=== PATIENT | female | born 1995 | race Caucasian/White ===

== ENCOUNTER 2017-08-26 13:35 | Emergency (ER) | payer BC, OTHER ==
[~2017-08-26] VITALS: Ht 162.6 cm; Wt 67.0 kg
[~2017-08-26 13:35] MED LIST: ACET-1693 PO; DOCU-94 PO; PREN1CAP20 PO; PREN1TAB29 PO; SERT50TA PO
[2017-08-26 13:41] VITALS: Ht 162.6 cm; Wt 67.0 kg
[2017-08-26] MEDS ORDERED: BCPILLS PO (13:58)
[2017-08-26] MEDS ORDERED: SODIUM CHLORIDE 0.9% 1000ML 1,000 ML IV ONE (14:00)
[2017-08-26] MEDS ORDERED: ONDANSETRON INJ 2 MG/ML 2 ML VIAL IV PRN (14:00)
--- NOTE | 2017-08-26 14:06 | EMERGENCY ROOM VISIT NOTE ---
History First contact with patient: 13:44 Chief Complaint: ABDOMINAL PAIN Stated Complaint: ABDOMINAL PAIN,NAUSEA Nursing Triage Summary: pt here with left upper quad pain with dry heaves x one hour. denies diarrhea History of Present Illness The patient is a 21 year old female who presents to the Emergency Room with complaints of sudden onset of left upper quadrant abdominal pain that started approximately 1230 this afternoon. She also feels nauseated with dry heaving. No actual vomiting. She describes the pain is a constant dull ache that occasionally gets sharp and stabbing. She has not taken anything for pain. Her last bowel movement was yesterday and reportedly normal. The patient currently denies any fever or chills. She was diagnosed with influenza earlier this week, and started on Tamiflu. Those symptoms have resolved. She denies any urinary symptoms. No vaginal discharge. No chest pain or difficulty breathing. Review of Systems 10 system review performed and negative unless noted in HPI or below Past Medical/Surgical History Medical Problems: (1) Migraine Depression Family History Patient reports no known family medical history. Social History Smoking Status: Never Smoker Alcohol Use: none Drug Use: none Marital Status: single Occupation Status: student Current/Historical Medications Scheduled Control Pills ( Control Pills), 1 TAB PO HS Dicyclomine Hcl (Bentyl), 1 CAP PO TID Docusate Sodium (Colace), 1 CAP PO BID Ondasetron Odt (Zofran Odt), 4 MG SL Q6H Sertraline (Zoloft), 50 MG PO HS Physical Exam Vital Signs Date Time Temp Pulse Resp B/P (MAP) Pulse Ox O2 Delivery O2 Flow Rate FiO2 08/26/17 16:38 36.7 56 17 126/81 98 08/26/17 15:35 62 17 124/76 99 Room Air 08/26/17 13:41 36.7 65 16 120/71 95 Physical Exam VITALS: Vitals are noted on the nurse's note and reviewed by myself. Vital signs stable. GENERAL: 21-year-old female, moderately uncomfortable, SKIN: The skin was without rashes, erythema, edema, or bruising. HEAD: Normocephalic atraumatic. MOUTH: Mucous membranes dry NECK: Supple without nuchal rigidity. No lymphadenopathy. Cervical spine is nontender. No JVD. HEART: Regular rate and rhythm without murmurs gallops or rubs. LUNGS: Clear to auscultation bilaterally without wheezes, rales or rhonchi. No accessory muscle use. ABDOMEN: Positive bowel sounds x 4.Soft, mild tenderness to deep palpation in the left upper quadrant. No CVA tenderness. No guarding or rebound tenderness. MUSCULOSKELETAL: No muscle atrophy, erythema, or edema noted. Strength 5/5 throughout. NEURO: Patient was alert and oriented to person place and time. Normal sensation to touch. No focal neurological deficits. Medical Decision & Procedures ER Provider Diagnostic Interpretation: CT abdomen and pelvis without contrast IMPRESSION: 1. Findings most consistent with acute colitis involving the ascending colon and transverse colon. This is likely infectious in etiology. Evaluation is overall limited by noncontrast technique. 2. No hydronephrosis. No nephrolithiasis. Electronically signed by: Samuel Michaud M.D. 08/26/2017 4:01 PM Dictated Date/Time: 08/26/2017 3:56 PM The status of this report is Signed. Draft = Not yet reviewed or approved by Radiologist. Signed = Reviewed and approved by Radiologist. <AttendingPhy></AttendingPhy> <FamilyPhy>Alan Almonte III, M.D.</FamilyPhy> < PrimaryPhy>Alan Almonte III, M.D.</PrimaryPhy> <UnitNumber>[id number]</ UnitNumber> <VisitNumber>[id number]</VisitNumber> <PatientName>KRISTINA BORGES</ PatientName> <DateOfBirth>1995</DateOfBirth> <Location>[facility]</Location> < ServiceDate>08/26/17</ServiceDate> <MNE>ESINDI</MNE> <OrderingPhy>[facility] Results 08/26/17 14:35 Red Blood Count 4.87, Mean Corpuscular Volume 83.8, Mean Corpuscular Hemoglobin 26.5, Mean Corpuscular Hemoglobin Concent 31.6, Mean Platelet Volume 10.7, Neutrophils (%) (Auto) 53.1, Lymphocytes (%) (Auto) 38.9, Monocytes (%) (Auto) 6.6, Eosinophils (%) (Auto) 1.2, Basophils (%) (Auto) 0.0, Neutrophils # (Auto) 3.49, Lymphocytes # (Auto) 2.55, Monocytes # (Auto) 0.43, Eosinophils # (Auto) 0.08, Basophils # (Auto) 0.00 08/26/17 14:35 Test 08/26/17 14:30 08/26/17 14:35 Urine Color YELLOW Urine Appearance CLEAR (CLEAR) Urine pH 5.0 (4.5-7.5) Urine Specific Vinson 1.018 (1.000-1.030) Urine Protein NEG (NEG) Urine Glucose (UA) NEG (NEG) Urine Ketones NEG (NEG) Urine Occult Blood NEG (NEG) Urine Nitrite NEG (NEG) Urine Bilirubin NEG (NEG) Urine Urobilinogen NEG (NEG) Urine Leukocyte Esterase NEG (NEG) Urine Test NEG (NEG) White Blood Count 6.56 K/uL (4.8-10.8) Red Blood Count 4.87 M/uL (4.2-5.4) Hemoglobin 12.9 g/dL (12.0-16.0) Hematocrit 40.8 % (37-47) Mean Corpuscular Volume 83.8 fL (80-100) Mean Corpuscular Hemoglobin 26.5 pg (25-34) Mean Corpuscular Hemoglobin Concent 31.6 g/dl (32-36) Platelet Count 228 K/uL (130-400) Mean Platelet Volume 10.7 fL (7.4-10.4) Neutrophils (%) (Auto) 53.1 % Lymphocytes (%) (Auto) 38.9 % Monocytes (%) (Auto) 6.6 % Eosinophils (%) (Auto) 1.2 % Basophils (%) (Auto) 0.0 % Neutrophils # (Auto) 3.49 K/uL (1.4-6.5) Lymphocytes # (Auto) 2.55 K/uL (1.2-3.4) Monocytes # (Auto) 0.43 K/uL (0.11-0.59) Eosinophils # (Auto) 0.08 K/uL (0-0.5) Basophils # (Auto) 0.00 K/uL (0-0.2) RDW Standard Deviation 43.5 fL (36.4-46.3) RDW Coefficient of Variation 14.2 % (11.5-14.5) Immature Granulocyte % (Auto) 0.2 % Immature Granulocyte # (Auto) 0.01 K/uL (0.00-0.02) Anion Gap 7.0 mmol/L (3-11) Est Creatinine Clear Calc Drug Dose 94.7 ml/min Estimated GFR () 108.8 Estimated GFR (Non- 93.9 BUN/Creatinine Ratio 16.1 (10-20) Calcium Level 9.5 mg/dl (8.5-10.1) Total Bilirubin 0.2 mg/dl (0.2-1) Aspartate Amino Transf (AST/SGOT) 18 U/L (15-37) Alanine Aminotransferase (ALT/SGPT) 22 U/L (12-78) Alkaline Phosphatase 50 U/L (45-117) Total Protein 8.2 gm/dl (6.4-8.2) Albumin 3.9 gm/dl (3.4-5.0) Globulin 4.3 gm/dl (2.5-4.0) Albumin/Globulin Ratio 0.9 (0.9-2) Lipase 155 U/L (73-393) Monoscreen NEG (NEG) Medications Administered Medications (Trade) Dose Ordered Sig/Anibal Route Start Time Stop Time Status Last Admin Dose Admin Morphine Sulfate (MoRPHine SULFATE INJ) 4 mg Q1H PRN IV 08/26/17 14:00 08/26/17 17:20 DC 08/26/17 16:38 4 MG Ondansetron HCl (Zofran Inj) 4 mg Q2H PRN IV 08/26/17 14:00 08/26/17 17:20 DC 08/26/17 14:36 4 MG Sodium Chloride 1,000 ml @ 999 mls/hr Q1H1M ONCE IV 08/26/17 14:00 08/26/17 15:00 DC 08/26/17 14:37 999 MLS/HR ED Course Patient was seen and examined Vital signs including blood pressure were reviewed medications list was verified with patient Labs were obtained, and a saline lock was established The patient was medicated with morphine and Zofran. She was hydrated with 1 L of normal saline. Upon reevaluation, the patient said that her pain was better. It was now a 5/ 10. We discussed the results of her workup. She voiced understanding, was comfortable being discharged home. She was given 1 additional dose of morphine I reviewed discharge instructions the patient. They voiced understanding and had no further questions. Medical Decision DIFFERENTIAL DIAGNOSIS: Gastroenteritis, Hepatitis, cholecystitis, cholangitis, biliary colic, pancreatitis, appendicitis, inguinal hernia, nephrolithiasis, inflammatory bowel disease, mesenteric adenitis, peptic ulcer disease, GERD, gastritis, pancreatitis,, bowel obstruction, splenic infarct, diverticulitis, mesenteric ischemia, metabolic, peritonitis, among others. This patient is a 21-year-old female that presents to the emergency department with complaints of sudden onset of left upper abdominal pain and nausea. On exam, she was tender in the left upper quadrant. A CT of the abdomen and pelvis were performed to evaluate patient for possible pyelonephritis versus ureteral stone versus pancreatitis or other etiology. This was consistent with a nonspecific colitis. The etiology is unclear. There is no leukocytosis or fever. I do not see an indication for antibiotics or steroids. This is likely self-limited. The patient will be treated with antiemetics and Bentyl. She will follow-up with her primary care physician closely on Monday. She agrees to return over the weekend with any worsening symptoms This chart was completed in part utilizing [employer] Voice Recognition software. Attempts were made to minimize the grammatical errors, random word insertions, pronoun errors and incomplete sentences. Any formal questions or concerns about the content, text or information contained within the body of this dictation should be directly addressed to the provider for clarification. Impression Primary Impression: Colitis Departure Information Dispostion Home / Self-Care Condition GOOD Prescriptions Ondasetron Odt (ZOFRAN ODT) 4 Mg Tab 4 MG SL Q6H for Nausea, #20 TAB Prov: Fadia Zavaleta PA-C 08/26/17 Dicyclomine Hcl (BENTYL) 10 Mg Cap 1 CAP PO TID for Pain, #15 CAP Prov: Fadia Zavaleta PA-C 08/26/17 Referrals Alan Almonte III, M.D. (PCP) Patient Instructions My [facility] Additional Instructions You have been evaluated in the emergency department for abdominal pain. This is likely due to a mild inflammation of the colon. This will likely resolve on its own. Please follow a clear liquid diet tonight-broth, Gatorade, water, dennis andres, etc. If you are feeling better tomorrow, please advance to a bland diet such as crackers and toast Zofran 1 tab under the tongue every 6 hours as needed for nausea Bentyl 1 tab every 8 hours as needed for abdominal cramping Please follow-up with your primary care physician within the next 48 hours for a recheck Do not hesitate to return to the emergency department with any new, worsening or concerning symptoms; especially, worsening pain, persistent vomiting or fever of 103F or greater It was a pleasure participating in your care today Work Instructions Return To Work: 1 day
[2017-08-26] MEDS: MoRPHine SULFATE 4 MG/ML 1 ML CARP\\VIAL IV PRN ×2 (14:36→16:38)
[2017-08-26 14:49] LABS: EOS % 1.2 %; EOS ABS # 0.08 K/uL (0-0.5); HEMATOCRIT 40.8 % (37-47); HEMOGLOBIN 12.9 g/dL (12.0-16.0); IG# 0.01 K/uL (0.00-0.02); LYMPH % 38.9 %; LYMPH ABS # 2.55 K/uL (1.2-3.4); MEAN CELL VOLUME 83.8 fL (80-100); MEAN CORPUSCULAR HEMOGLOBIN 26.5 pg (25-34); MEAN CORPUSCULAR HGB CONC 31.6 g/dl (32-36); MEAN PLATELET VOLUME 10.7 fL (7.4-10.4); MONO % 6.6 %; MONO ABS # 0.43 K/uL (0.11-0.59); NEUT % 53.1 %; NEUT ABS # 3.49 K/uL (1.4-6.5); PLATELET COUNT 228 K/uL (130-400); RED CELL DISTRIBUTION WIDTH CV 14.2 % (11.5-14.5); RED CELL DISTRIBUTION WIDTH SD 43.5 fL (36.4-46.3); WHITE BLOOD COUNT 6.56 K/uL (4.8-10.8)
[2017-08-26 15:06] LABS: ALBUMIN 3.9 gm/dl (3.4-5.0); CALCIUM 9.5 mg/dl (8.5-10.1); CREATININE 0.87 mg/dl (0.60-1.20); POTASSIUM 3.9 mmol/L (3.5-5.1)
[2017-08-26 15:09] LABS: TOTAL PROTEIN 8.2 gm/dl (6.4-8.2)
--- NOTE | 2017-08-26 16:02 | DIAGNOSTIC IMAGING REPORT ---
ABD/PELVIS NO IV OR ORAL CONT CLINICAL HISTORY: 21 years-old Female presenting with L flank pain mild hydro on bedside US. TECHNIQUE: Multidetector CT of the abdomen and pelvis was performed without the use of intravenous contrast. IV contrast: 04/14/2012 A dose lowering technique was used consistent with the principles of ALARA (as low as reasonably achievable). COMPARISON: None. CT DOSE (mGy.cm): The estimated cumulative dose is 305.33 mGy.cm. FINDINGS: Fisher Gill Net topogram: Unremarkable. Lung bases: Minimal basilar opacities, likely atelectasis. Normal heart size. No pericardial or pleural effusion. Liver: Normal morphology. Normal density. Biliary: No gross biliary ductal dilatation allowing for noncontrast technique. Normal gallbladder. Pancreas: Normal noncontrast appearance. Spleen: Normal noncontrast appearance. Adrenal glands: Normal noncontrast appearance. Kidneys and ureters: Normal noncontrast appearance. No nephrolithiasis. No hydronephrosis. Normal ureters. Bladder: Normal noncontrast appearance. Pelvic organs: Normal noncontrast appearance. Bowel: Moderate stool burden. Focal wall thickening of the ascending colon to the level of the hepatic flexure. Minimal wall thickening of the transverse colon. Extensive infiltration of the transverse mesial colon. The appendix is normal. No bowel obstruction. Peritoneal cavity: No free fluid or intraperitoneal gas. Lymph nodes: No gross lymphadenopathy allowing for noncontrast technique. Vasculature: Normal noncontrast appearance. Abdominal wall: Normal. Musculoskeletal: Normal. IMPRESSION: 1. Findings most consistent with acute colitis involving the ascending colon and transverse colon. This is likely infectious in etiology. Evaluation is overall limited by noncontrast technique. 2. No hydronephrosis. No nephrolithiasis. Electronically signed by: Samuel Michaud M.D. 08/26/2017 4:01 PM Dictated Date/Time: 08/26/2017 3:56 PM
[2017-08-26] MEDS ORDERED: DICY10CA55 PO (16:19)
[2017-08-26] MEDS ORDERED: ONDA4TAB10 SL (16:19)
[2017-08-26 16:38] VITALS: BP 126/81; PULSE 56; TEMP 36.7; O2SAT 98
== END 2017-08-26 16:39 | disposition home or self-care (01) ==
LOC: C.EDB 13:35
DX: K52.9 Noninfective gastroenteritis and colitis, unspecified (principal); R10.12 Left upper quadrant pain; R11.0 Nausea; Z79.899 Other long term (current) drug therapy; Z79.3 Long term (current) use of hormonal contraceptives; F32.9 Major depressive disorder, single episode, unspecified

== ENCOUNTER 2019-12-18 16:52 | Observation (INO) ==
[2019-12-18] MEDS ORDERED: KETOROLAC TROMETHAMINE 15 MG/ML VIAL IV STA (17:08)
[2019-12-18] MEDS ORDERED: ONDANSETRON INJ 2 MG/ML 2 ML VIAL IV STA (17:08)
--- NOTE | 2019-12-18 17:14 | Emergency Department Note ---
Impression & Plan RUQ abdominal pain, Vomiting, Failure of outpatient treatment ED Provider Note NAME: KRISTINA BORGES AGE: 24 SEX: F : 1995 ARRIVES VIA: Walk-In INFORMANT: [Patient] ED PROVIDER(S): [Kirill Huang MD] CHIEF COMPLAINT: Abdominal pain HISTORY OF PRESENT ILLNESS: Patient is a 24-year-old female who states that at 1230 yesterday after eating her lunch, she developed severe right upper quadrant abdominal pain radiating to her right shoulder. The pain is an 8 on a scale of 1-10. She has had nausea and vomiting. The pain is worse to palpate the right upper quadrant and when she takes a very deep breath. She is not short of breath. She had a low-grade temperature today of 99 degrees. The patient came to the ED yesterday for her pain. Her laboratory work-up and gallbladder ultrasound were essentially unremarkable. The cause for the pain was not clear and she was referred for potential further outpatient care. The patient states that the pain has continued. She is still vomiting, she cannot eat or drink. The medications prescribed yesterday are not helping. She is convinced this is her gallbladder. There have been no urinary complaints. She has never had pain like this before. She denies stuffy nose or cough. REVIEW OF SYSTEMS: See HPI for pertinent positives and negatives. A total of ten systems were reviewed and were otherwise negative. PMHx/PSHx: See Below SOCIAL HISTORY: See Below. PHYSICAL EXAM: GENERAL: Patient is in no acute distress. HEENT: No acute trauma, normocephalic atraumatic, mucous membranes moist, no n kelly congestion, no scleral icterus. NECK: No stridor, no adenopathy, no meningismus, trachea is midline. LUNGS: Clear to auscultation bilaterally, no wheeze, no rhonchi, breath sounds equal. HEART: Without murmurs gallops or rubs, regular rate and rhythm. Chest: Nontender chest wall. ABDOMEN: Soft, significantly tender in the right upper quadrant, bowel sounds positive, no hernias, no peritonitis. EXTREMITIES: No cyanosis or edema, full range of motion of all the joints without pain or difficulty, no signs for acute trauma. NEUROLOGIC: Oriented x 3, no acute motor or sensory deficits, no focal weakness. SKIN: No rash, no jaundice, no diaphoresis. DIFFERENTIAL DIAGNOSIS: Appendicitis, ovarian cyst, ovarian torsion, ectopic , TOA, PID, infections, diverticulitis, UTI, obstruction, mesenteric ischemia, aortic pathology, inflammatory bowel disease, renal colic, PUD, pancreatitis, biliary pathology, hernia, volvulus, constipation, as well as other pathologies. EMERGENCY DEPARTMENT COURSE/PROCEDURES: MEDICAL DECISION MAKING: There is no leukocytosis or concerning anemia. There is a normal platelet count. No significant electrolyte abnormality or kidney failure. No concerning liver enzyme elevation. No evidence for pancreatitis. testing was negative. Abdominal and pelvis CT shows some trace fluid in the pelvis thought physiologic. There was no evidence for appendicitis. No acute surgical process by CT scan. On exam, the patient was quite tender in the right upper quadrant. Patient received IV saline for hydration. She was given IV Zofran, IV morphine, IV Toradol. She required IV Phenergan for additional nausea control. At this point, the cause for her pain is unclear. Biliary dysfunction is certainly a possibility though. The patient has failed outpatient treatment. She is not able to take in anything by mouth. She has persistent vomiting despite medications prescribed yesterday. I do think a hospital stay is warranted. I did speak with general surgery-patient is being hospitalized for a potential cholecystectomy. 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 Beliefs That Will Affect Care: None marital status: Current Living Situation: Spouse current occupational status: employed Feels Safe at Home: Yes Allergies Allergies Allergy/AdvReac Type Severity Reaction Status Date / Time sumatriptan [From Imitrex] Allergy Severe felt like Unverified 12/18/19 19:58 throat was swelling Home Meds Home Medications Medication Instructions Recorded Confirmed escitalopram oxalate [Lexapro] 10 mg PO DAILY 12/17/19 12/18/19 Previous Rx's Medication Instructions Recorded oxycodone 5 mg PO Q4H PRN #15 tab 12/17/19 Results & Data (ED) Vital Signs Vital Signs - 24 hr 12/18/19 16:55 12/18/19 17:26 12/18/19 17:30 Temperature 36.4 C L Temperature Source Oral Pulse Rate 74 66 Pulse Rate [Left Finger] 62 Pulse Rate from SpO2 Sensor 67 Pulse Rhythm Regular Pulse Strength Normal Respiratory Rate 18 20 15 Respiratory Effort / Characteristics Non-Labored Respiratory Depth Normal Respiratory Pattern Regular Blood Pressure 113/75 115/66 Blood Pressure [Left Arm] 121/63 Blood Pressure Mean 87 85 Blood Pressure Mean [Left Arm] 82 Blood Pressure Position Sitting Pulse Oximetry 97 98 97 Oxygen Delivery Method Room Air Sepsis Recent Fever Within 48 Hours Yes Sepsis New/Unexplained Change in Mental Status No Sepsis Action Taken by Nursing No Action Required 12/18/19 17:39 12/18/19 17:40 12/18/19 17:50 Temperature Temperature Source Pulse Rate 60 60 58 L Pulse Rate [Left Finger] Pulse Rate from SpO2 Sensor 59 L 61 61 Pulse Rhythm Pulse Strength Respiratory Rate 18 12 21 Respiratory Effort / Characteristics Respiratory Depth Respiratory Pattern Blood Pressure Blood Pressure [Left Arm] Blood Pressure Mean Blood Pressure Mean [Left Arm] Blood Pressure Position Pulse Oximetry 97 97 98 Oxygen Delivery Method Sepsis Recent Fever Within 48 Hours Sepsis New/Unexplained Change in Mental Status Sepsis Action Taken by Nursing 12/18/19 18:00 12/18/19 18:01 12/18/19 18:10 Temperature Temperature Source Pulse Rate 56 L 58 L 61 Pulse Rate [Left Finger] Pulse Rate from SpO2 Sensor 57 L 56 L 62 Pulse Rhythm Pulse Strength Respiratory Rate 12 13 Respiratory Effort / Characteristics Respiratory Depth Respiratory Pattern Blood Pressure 98/62 L Blood Pressure [Left Arm] Blood Pressure Mean 82 Blood Pressure Mean [Left Arm] Blood Pressure Position Pulse Oximetry 99 99 99 Oxygen Delivery Method Sepsis Recent Fever Within 48 Hours Sepsis New/Unexplained Change in Mental Status Sepsis Action Taken by Nursing 12/18/19 18:20 12/18/19 18:34 12/18/19 18:40 Temperature Temperature Source Pulse Rate 53 L 59 L 54 L Pulse Rate [Left Finger] Pulse Rate from SpO2 Sensor 52 L 56 L Pulse Rhythm Pulse Strength Respiratory Rate 14 13 16 Respiratory Effort / Characteristics Respiratory Depth Respiratory Pattern Blood Pressure Blood Pressure [Left Arm] Blood Pressure Mean Blood Pressure Mean [Left Arm] Blood Pressure Position Pulse Oximetry 99 99 Oxygen Delivery Method Sepsis Recent Fever Within 48 Hours Sepsis New/Unexplained Change in Mental Status Sepsis Action Taken by Nursing 12/18/19 18:50 12/18/19 19:00 12/18/19 19:10 Temperature Temperature Source Pulse Rate 57 L 58 L 56 L Pulse Rate [Left Finger] 56 L Pulse Rate from SpO2 Sensor 58 L 58 L 54 L Pulse Rhythm Pulse Strength Respiratory Rate 15 15 14 Respiratory Effort / Characteristics Respiratory Depth Respiratory Pattern Blood Pressure 112/74 Blood Pressure [Left Arm] 112/74 Blood Pressure Mean 84 Blood Pressure Mean [Left Arm] 86 Blood Pressure Position Pulse Oximetry 98 98 92 Oxygen Delivery Method Room Air Sepsis Recent Fever Within 48 Hours Sepsis New/Unexplained Change in Mental Status Sepsis Action Taken by Nursing 12/18/19 19:20 12/18/19 19:30 Temperature Temperature Source Pulse Rate 56 L 61 Pulse Rate [Left Finger] Pulse Rate from SpO2 Sensor 57 L 61 Pulse Rhythm Pulse Strength Respiratory Rate 13 14 Respiratory Effort / Characteristics Respiratory Depth Respiratory Pattern Blood Pressure 125/76 Blood Pressure [Left Arm] Blood Pressure Mean 92 Blood Pressure Mean [Left Arm] Blood Pressure Position Pulse Oximetry 100 99 Oxygen Delivery Method Sepsis Recent Fever Within 48 Hours Sepsis New/Unexplained Change in Mental Status Sepsis Action Taken by Alf Medications Current Medication List: was personally reviewed by me Laboratory Data Attestation: I reviewed the patient's lab results. Result diagrams: 12/18/19 17:30 12/18/19 17:30 Lab Results 12/18/19 12/18/19 12/18/19 Range/Units 17:30 17:30 17:30 WBC 5.91 (4.8-10.8) K/uL RBC 4.52 (4.2-5.4) M/uL Hgb 12.8 (12.0-16.0) g/dL Hct 40.0 (37-47) % MCV 88.5 (80-100) fL MCH 28.3 (25-34) pg MCHC 32.0 (32-36) g/dL RDW Std Deviation 43.6 (36.4-46.3) fL RDW Coeff of Roque 13.5 (11.5-14.5) % Plt Count 213 (130-400) K/uL MPV 11.5 H (7.4-10.4) fL Immature Gran % (Auto) 0.0 % Neut % (Auto) 45.1 % Lymph % (Auto) 44.2 % [place] % (Auto) 8.5 % Eos % (Auto) 2.0 % Baso % (Auto) 0.2 % Neut # (Auto) 2.67 (1.4-6.5) K/uL Lymph # (Auto) 2.61 (1.2-3.4) K/uL [place] # (Auto) 0.50 (0.11-0.59) K/uL Eos # (Auto) 0.12 (0-0.5) K/uL Baso # (Auto) 0.01 (0-0.2) K/uL Immature Gran # (Auto) 0.00 (0.00-0.02) K/uL Sodium 140 (136-145) mmol/L Potassium 3.7 (3.5-5.1) mmol/L Chloride 108 H (98-107) mmol/L Carbon Dioxide 28 (21-32) mmol/L Anion Gap 4.0 (3-11) BUN 11 (7-18) mg/dl Creatinine 0.89 D (0.6-1.2) mg/dl Est Cr Clr Drug Dosing 94.0 ml/min Est GFR ( Amer) 103.7 Est GFR (Non-Af Amer) 89.4 BUN/Creatinine Ratio 11.9 (10-20) Glucose 82 (70-99) mg/dl Calcium 9.0 (8.5-10.1) mg/dl Total Bilirubin 0.2 (0.2-1) mg/dl AST 14 L (15-37) U/L ALT 19 (12-78) U/L Alkaline Phosphatase 40 L (45-117) U/L Total Protein 7.8 (6.4-8.2) gm/dl Albumin 4.3 (3.4-5.0) gm/dl Globulin 3.5 (2.5-4.0) gm/dl Albumin/Globulin Ratio 1.2 (0.9-2) Lipase 130 (73-393) U/L HCG, Qual Negative (Negative) Administered Medications Hydromorphone HCl (Dilaudid) 0.5 mg IV Q3HWA PRN PRN Reason: Pain 1-5 Stop: 01/01/20 19:29 Last Admin: 12/18/19 21:28 Dose: 0.5 mg Documented by: [id number] Sodium Chloride (Nss 1000ml) 1,000 mls @ 80 mls/hr IV .[id number] RAFFI Stop: 01/17/20 19:29 Last Admin: 12/18/19 21:18 Dose: 80 mls/hr Documented by: [id number] Discontinued Medications Sodium Chloride (Nss) 500 mls @ 999 mls/hr IV .Q31M RAFFI Stop: 12/18/19 17:45 Last Infusion: 12/18/19 18:07 Dose: 0 mls/hr Documented by: [id number] Admin: 12/18/19 17:33 Dose: 999 mls/hr Documented by: [id number] Promethazine HCl 12.5 mg/ (Sodium Chloride) 50.5 mls @ 202 mls/hr IV NOW STA Stop: 12/18/19 19:04 Last Admin: 12/18/19 18:56 Dose: Not Given Documented by: [id number] Ioversol (Optiray 320 100ml) 89 ml IV ONCE PRN PRN Reason: Interaction Checking Stop: 12/22/19 18:24 Last Admin: 12/18/19 18:25 Dose: 89 ml Documented by: [id number] Ketorolac Tromethamine (Toradol) 15 mg IV NOW STA Stop: 12/18/19 17:09 Last Admin: 12/18/19 17:28 Dose: 15 mg Documented by: [id number] Morphine Sulfate (Morphine Sulfate) 2 mg IV Q15M PRN PRN Reason: Pain Stop: 01/01/20 17:07 Last Admin: 12/18/19 18:56 Dose: 2 mg Documented by: [id number] Admin: 12/18/19 17:28 Dose: 2 mg Documented by: [id number] Ondansetron HCl (Zofran) 4 mg IV NOW STA Stop: 12/18/19 17:09 Last Admin: 12/18/19 17:28 Dose: 4 mg Documented by: [id number] Promethazine HCl (Phenergan) Confirm Administered Dose 12.5 mg IV .STK-MED ONE Stop: 12/18/19 18:54 Last Admin: 12/18/19 18:56 Dose: 12.5 mg Documented by: [id number] Imaging Data Radiologist's Impression: CT OF THE ABDOMEN AND PELVIS WITH CONTRAST CLINICAL HISTORY: ruq pain, neg ultrasound, vomiting COMPARISON STUDY: CT of the abdomen and pelvis August 26, 2017. Right upper quadrant ultrasound December 17, 2019. TECHNIQUE: Following IV administration of 89 mL of Optiray-320, axial images of the abdomen and pelvis were obtained from the lung bases to the proximal femurs. Images were reviewed in the axial, sagittal, and coronal planes. IV contrast was administered without complication. Automated exposure control was utilized for the study. A dose lowering technique was utilized adhering to the principles of ALARA. CT DOSE: 371.38 mGy.cm FINDINGS: Lung bases are unremarkable. No pneumatosis, free air or portal venous gas is present. The liver, spleen, adrenal glands, kidneys and pancreas are unremarkable. The nephrograms are symmetric. Punctate hyperdensity within the right collecting system could reflect excreted contrast or a tiny calculus. There are no ureteral calculi. There is no peripancreatic or pericholecystic infiltration. No biliary or pancreatic ductal dilatation is noted. The appendix is partially obscured but visualized portions are normal. A small amount of fluid within the pelvis is noted. Major vasculature is patent. Caliber and wall thickness of small and large bowel are normal. There are no suspicious osseous lesions. There is no lymphadenopathy. No fracture or suspicious lesion is identified within visualized skeletal structures. IMPRESSION: 1. No acute process within the abdomen or pelvis. 2. No bowel obstruction. Partially obscured appendix but visualized portions normal. 3. Small fluid within the pelvis which is likely physiologic. Blood Pressure Blood Pressure Findings: Normal blood pressure Discharge Plan Visit Data *Final* Discharge Date/Time: 12/18/19 20:24 Chief Complaint: Vomiting Stated Complaint: SHOULDER PAIN, VOMITTING ED Provider: Kirill Huang Discharge Problem: RUQ abdominal pain, Vomiting, Failure of outpatient treatment Patient Disposition: Admitted As Inpatient Condition: Good Discharge Instructions Interventions: ED Discharge Assessment Last Done: 12/18/19 20:24 Discharge Problem: Vomiting Qualifiers: Vomiting type: unspecified Vomiting Intractability: intractable Nausea presence: with nausea Qualified Code(s): R11.2 - Nausea with vomiting, unspecified
[2019-12-18] MEDS ORDERED: SODIUM CHLORIDE 0.9% 500 ML IV SCH (17:15)
[2019-12-18] MEDS: MoRPHine SULFATE 4 MG/ML 1 ML CARP\\VIAL IV PRN ×2 (17:28→18:56)
[2019-12-18 17:45] LABS: Basophils # (auto) 0.01 K/uL (0-0.2); Basophils % (auto) 0.2 %; Eosinophils # (auto) 0.12 K/uL (0-0.5); Hemoglobin 12.8 g/dL (12.0-16.0); Lymphocytes # (auto) 2.61 K/uL (1.2-3.4); Lymphocytes % (auto) 44.2 %; Mean Corpuscular Hemoglobin 28.3 pg (25-34); Mean Corpuscular Volume 88.5 fL (80-100); Mean Platelet Volume 11.5 fL (7.4-10.4); Monocytes % (auto) 8.5 %; Neutrophils # (auto) 2.67 K/uL (1.4-6.5); Neutrophils % (auto) 45.1 %; Platelet Count 213 K/uL (130-400); RDW Coefficient of Variation 13.5 % (11.5-14.5); RDW Standard Deviation 43.6 fL (36.4-46.3); Red Blood Count 4.52 M/uL (4.2-5.4); White Blood Count 5.91 K/uL (4.8-10.8)
[2019-12-18 17:58] LABS: Pregnancy Test, Serum Negative (Negative)
[2019-12-18 18:10] LABS: Albumin Globulin Ratio 1.2 (0.9-2); Albumin Level 4.3 gm/dl (3.4-5.0); BUN Creatinine Ratio 11.9 (10-20); Bilirubin,Total 0.2 mg/dl (0.2-1); Est GFR (African American) 103.7; Est GFR (Non-African American) 89.4; Globulin 3.5 gm/dl (2.5-4.0); Potassium 3.7 mmol/L (3.5-5.1); Total Protein 7.8 gm/dl (6.4-8.2)
[2019-12-18] MEDS ORDERED: IOVERSOL 100ml IV PRN (18:25)
--- NOTE | 2019-12-18 18:46 | CT Scan Report ---
CT OF THE ABDOMEN AND PELVIS WITH CONTRAST CLINICAL HISTORY: ruq pain, neg ultrasound, vomiting COMPARISON STUDY: CT of the abdomen and pelvis August 26, 2017. Right upper quadrant ultrasound November 202019. TECHNIQUE: Following IV administration of 89 mL of Optiray-320, axial images of the abdomen and pelvi s were obtained from the lung bases to the proximal femurs. Images were reviewed in the axial, sagitt al, and coronal planes. IV contrast was administered without complication. Automated exposure contro l was utilized for the study. A dose lowering technique was utilized adhering to the principles of A KIRAN. CT DOSE: 371.38 mGy.cm FINDINGS: Lung bases are unremarkable. No pneumatosis, free air or portal venous gas is present. The liver, spleen, adrenal glands, kidneys and pancreas are unremarkable. The nephrograms are symmetric. Punctate hyperdensity within the right collecting system could reflect excreted contrast or a tiny ca lculus. There are no ureteral calculi. There is no peripancreatic or pericholecystic infiltration. No biliary or pancreatic ductal dilatation is noted. The appendix is partially obscured but visualized portions are normal. A small amount of fluid within the pelvis is noted. Major vasculature is patent. Caliber and wall thickness of small and large bowel are normal. There are no suspicious osseous lesi ons. There is no lymphadenopathy. No fracture or suspicious lesion is identified within visualized sk eletal structures. IMPRESSION: 1. No acute process within the abdomen or pelvis. 2. No bowel obstruction. Partially obscured appendix but visualized portions normal. 3. Small fluid within the pelvis which is likely physiologic. ACT 112: Negative or not required by law. Electronically signed by: Pascual Mercado M.D. 12/18/2019 6:45 PM
[2019-12-18] MEDS ORDERED: PROMETHAZINE HCL 12.5 MG in SODIUM CHLORIDE 0.9% 50 ML IV STA (18:50)
[2019-12-18] MEDS ORDERED: PROMETHAZINE 12.5 MG/50.5 ML NSS IV ONE (18:53)
[2019-12-18] MEDS ORDERED: PROMETHAZINE HCL 12.5 MG in SODIUM CHLORIDE 0.9% 50 ML IV PRN (19:30)
[2019-12-18] MEDS ORDERED: ONDANSETRON INJ 2 MG/ML 2 ML VIAL IV PRN (19:30)
[2019-12-18] MEDS ORDERED: PROMETHAZINE HCL 25 MG in SODIUM CHLORIDE 0.9% 50 ML IV PRN (19:30)
--- NOTE | 2019-12-18 19:30 | History & Physical Report ---
Date of Service December 18, 2019 Assessment & Plan (1) Biliary colic: I do believe the patient is having biliary colic Do not feel a GI evaluation will find any additional information I do feel we should proceed with laparoscopic cholecystectomy And I have discussed this with patient and her They do agree and wish to proceed We will admit her and proceed tomorrow History of Present Illness Primary Care Provider: Alan Almonte MD 24-year-old female who is now been in the emergency room 2 days in a row with right upper quadrant pain Nausea and vomiting-the pain apparently radiates into her shoulder and back area She is convinced that is her gallbladder Her studies have been essentially normal Allergies Allergy/AdvReac Type Severity Reaction Status Date / Time sumatriptan [From Imitrex] Allergy Severe felt like Unverified 12/17/19 14:39 throat was swelling Home Medications Home Medications Medication Instructions Recorded Confirmed Type escitalopram oxalate [Lexapro] 10 mg PO DAILY 12/17/19 12/17/19 History ondansetron 4 mg PO Q6H PRN #10 tab 12/17/19 Rx oxycodone 5 mg PO Q4H PRN #15 tab 12/17/19 Rx Past Med/Surg History Medical History Migraine (Chronic) Surgical History No significant past surgical history Social History Smoking Status: Never smoker marital status: Current Living Situation: Spouse current occupational status: employed Feels Safe at Home: Yes Review of Systems Review of Systems: All systems reviewed & are unremarkable except as noted in HPI & below Physical Exam Physical Exam: Her abdomen is soft but she does have right upper quadrant tenderness Constitutional: well developed and well nourished; no acute distress Respiratory: normal respiratory effort; no respiratory distress Cardiovascular: Rate/Rhythm: regular rate Skin: no rashes, warm and dry Neurologic: awake Psychiatric: Orientation: alert Results & Data Results & Data ([facility]) Vital Signs (Past 12 Hours) Vital Signs Temp Pulse Pulse Resp BP BP Pulse Ox 12/18/19 17:26 62 20 121/63 98 12/18/19 16:55 36.4 C L 74 18 113/75 97 I have reviewed her ultrasound and CAT scan And her laboratories PG Care Time/CCT Total # of Minutes Spent Total Time Spent with Patient: Total time spent is greater than 50% in coordination of care (as documented) at patient's floor/unit and/or counseling patient: Coding Level of Care Code 79974 Initial Inpt Care Lvl 3 Diagnoses Biliary colic K80.50
[2019-12-18] MEDS: SODIUM CHLORIDE 0.9% 1000ML 1,000 ML IV SCH (21:18)
[2019-12-18] MEDS: HYDROmorphone INJ 0.5 MG/0.5 ML SYR IV PRN (21:28)
[2019-12-19 00:10] LABS: Appearance Urine Clear (Clear); Bacteria Urine Automated Negative (Negative); Bilirubin Urine Negative (Negative); Blood Urine 3+ (Negative); Cast Urine Automated 0 /lpf (0-5); Color Urine Yellow; Epithelial Cell Urine Auto >30 /lpf (0-5); Glucose Urine UA Negative (Negative); Ketones Urine Negative (Negative); Leukocyte Esterase Urine Negative (Negative); Nitrite Urine Negative (Negative); Protein Urine Negative (Negative); RBC Urine Automated 0-4 /hpf (0-4); Specific Gravity Urine > 1.045 (1.000-1.030); Urobilinogen Urine Negative (Negative); pH Urine 5.5 (4.5-7.5)
[2019-12-19] MEDS ORDERED: cefUROXime 1,500 MG in DEXTROSE 5% 100 ML IV SCH (06:00)
--- NOTE | 2019-12-19 06:34 | History & Physical Bridge Note ---
Date of Service December 19, 2019 History & Physical Bridge Note I have examined the patient, reviewed the History & Physical and in the interval since the performance of the History & Physical I have noted the following changes of clinical significance: no changes noted
[2019-12-19] MEDS: HYDROmorphone INJ 1 MG/ML SYRINGE IV PRN ×3 (06:37→20:38)
[2019-12-19] MEDS ORDERED: fentaNYL citrate 100 MCG/2 ML VIAL ONE (07:01)
[2019-12-19] MEDS ORDERED: ROCURONIUM BROMIDE 10 MG/ML 5 ML VIAL IV ONE (07:01)
[2019-12-19] MEDS ORDERED: PROPOFOL IV EMULSION 10 MG/ML 20 ML VIAL IV ONE (07:01)
[2019-12-19] MEDS ORDERED: ONDANSETRON INJ 2 MG/ML 2 ML VIAL ONE (07:01)
[2019-12-19] MEDS ORDERED: LIDOCAINE HCL 2% 2 ML VIAL/AMP(20MG/ML) INFIL ONE (07:01)
[2019-12-19] MEDS ORDERED: MIDAZOLAM HCL 1 MG/ML 2ML VIAL ONE (07:01)
[2019-12-19] MEDS ORDERED: BUPIVACAINE 0.5 % 5 MG/1 ML MPF 30ML VIAL ONE (07:07)
--- NOTE | 2019-12-19 07:36 | Anesthesiology Consultation ---
Date of Service December 19, 2019 Assessment & Plan (1) Encounter for pre-operative examination: Chart Review Chart Review: Acceptable Risk for Surgery History Surgery Operation Date: 12/19/19 11:00 Proposed Procedures p Laparoscopic Cholecystectomy - Mich Heredia MD, FACS Height/Weight Height: 5 ft 4 in Weight: 74 kg Allergies Allergy/AdvReac Type Severity Reaction Status Date / Time sumatriptan [From Imitrex] Allergy Severe felt like Unverified 12/18/19 19:58 throat was swelling Medications Home Medications Medication Instructions Recorded Confirmed Last Taken escitalopram oxalate [Lexapro] 10 mg PO DAILY 12/17/19 12/18/19 Unknown oxycodone 5 mg PO Q4H PRN #15 tab 12/17/19 12/18/19 Unknown Active Medications Generic Name Dose Route Start Last Admin Trade Name Freq PRN Reason Stop Dose Admin Hydromorphone HCl 0.5 mg 12/18/19 19:30 12/18/19 21:28 Dilaudid IV 01/01/20 19:29 0.5 mg Q3HWA PRN Administration Pain 1-5 Hydromorphone HCl 1 mg 12/18/19 19:30 12/19/19 06:37 Dilaudid IV 01/01/20 19:29 1 mg Q3HWA PRN Administration Pain 6-10 Sodium Chloride 1,000 mls @ 80 mls/hr 12/18/19 19:30 12/18/19 21:18 Nss 1000ml IV 01/17/20 19:29 80 mls/hr .[id number] RAFFI Administration NPO Date Last Intake of Fluids: 12/19/19 Time Last Intake of Fluids: 00:00 Date Last Intake of Solids: 12/18/19 Past Medical History Medical History Migraine (Chronic) Past Family History Family History Grandmother Gallbladder disease Mother Gallbladder disease Aunt Gallbladder disease Past Surgical History Surgical History No significant past surgical history Social History Smoking Status: Never smoker Hx Alcohol Use: Yes alcohol intake frequency: holidays/special occasions only Hx Substance Use: No substance use type: does not use Physical Exam Vital Signs Last Vital Signs Temp 36.8 C 12/19/19 07:03 Pulse 60 12/19/19 07:03 Resp 20 12/19/19 07:03 BP 110/73 12/19/19 07:03 Pulse Ox 97 12/19/19 07:03 Testing Laboratory Results 12/18/19 17:30 12/18/19 17:30 Urine Color Yellow 12/18/19 23:50 Urine Appearance Clear (Clear) 12/18/19 23:50 Urine pH 5.5 (4.5-7.5) 12/18/19 23:50 Ur Specific [place]ick[place] > 1.045 (1.000-1.030) H 12/18/19 23:50 Urine Protein Negative (Negative) 12/18/19 23:50 Urine Glucose (UA) Negative (Negative) 12/18/19 23:50 Urine Ketones Negative (Negative) 12/18/19 23:50 Urine Nitrite Negative (Negative) 12/18/19 23:50 Ur Leukocyte Esterase Negative (Negative) 12/18/19 23:50 Urine WBC (Auto) 1-5 /hpf (0-5) 12/18/19 23:50 Urine RBC (Auto) 0-4 /hpf (0-4) 12/18/19 23:50 U Hyaline Cast (Auto) 0 /lpf (0-5) 12/18/19 23:50 U Epithel Cells (Auto) >30 /lpf (0-5) H 12/18/19 23:50 Urine Bacteria (Auto) Negative (Negative) 12/18/19 23:50
[2019-12-19] MEDS ORDERED: ONDANSETRON INJ 2 MG/ML 2 ML VIAL IV PRN (07:42)
[2019-12-19] MEDS ORDERED: KETOROLAC 30 MG/ML VIAL IV PRN (07:42)
[2019-12-19] MEDS ORDERED: PROMETHAZINE HCL 6.25 MG in SODIUM CHLORIDE 0.9% 50 ML IV PRN (07:42)
[2019-12-19] MEDS ORDERED: ATROPINE SULFATE 0.1 MG/ML 10ML SYR IV PRN (07:42)
[2019-12-19] MEDS ORDERED: HYDROmorphone INJ 1 MG/ML SYRINGE IV PRN (07:42)
[2019-12-19] MEDS ORDERED: ACETAMINOPHEN 1000 MG/100 ML IV IV ONE (08:02)
[2019-12-19] MEDS ORDERED: DEXAMETHASONE SOD INJ 4 MG/ML VIAL ONE (08:23)
--- NOTE | 2019-12-19 08:46 | Post Operative Brief Note ---
PG Immediate Post Op with CF Date of Surgery December 19, 2019 Pre & Post Diagnosis Operation Date: 12/19/19 11:00 Pre-Op Diagnosis: BILIARY COLIC Post-Op Diagnosis: BILIARY COLIC I identified the patient and participated in the time-out.: Yes Procedure Operation Date: 12/19/19 11:00 Actual Procedures p Laparoscopic Cholecystectomy - Mich Heredia MD, FACS Surgeon Mich Heredia MD, FACS Manager Multimedia nurses Estimated Blood Loss 5 Findings Consistent with Post-Op Diagnosis Specimens Specimen Description: A. Gall Bladder
[2019-12-19] MEDS ORDERED: NEOSTIGMINE METHYLSULFATE 5 MG/5 ML SYR ONE (08:59)
[2019-12-19] MEDS ORDERED: GLYCOPYRROLATE 0.2 MG/ML VIAL ONE (08:59)
--- NOTE | 2019-12-19 09:46 | Anesthesiology Progress Note ---
Date of Service December 19, 2019 Anesthesia Post Procedure Vital Signs Vital Signs: Temp Pulse Pulse Pulse Resp BP BP 12/19/19 09:25 36.4 C L 61 19 12/19/19 09:15 67 14 12/19/19 09:05 63 15 12/19/19 08:56 36.3 C L 77 17 12/19/19 07:36 36.9 C 69 16 12/19/19 07:03 36.8 C 60 20 12/18/19 23:23 36.7 C 57 L 14 12/18/19 20:37 36.9 C 57 L 16 114/62 12/18/19 20:24 56 L 18 111/71 12/18/19 20:00 53 L 14 111/71 12/18/19 19:50 54 L 15 12/18/19 19:40 54 L 13 12/18/19 19:31 58 L 12/18/19 19:30 61 14 125/76 12/18/19 19:20 56 L 13 12/18/19 19:10 56 L 14 12/18/19 19:00 58 L 56 L 15 112/74 112/74 12/18/19 18:50 57 L 15 12/18/19 18:40 54 L 16 12/18/19 18:34 59 L 13 12/18/19 18:20 53 L 14 12/18/19 18:10 61 13 12/18/19 18:01 58 L 12 12/18/19 18:00 56 L 98/62 L 12/18/19 17:50 58 L 21 12/18/19 17:40 60 12 12/18/19 17:39 60 18 12/18/19 17:30 66 15 115/66 12/18/19 17:26 62 20 121/63 12/18/19 16:55 36.4 C L 74 18 113/75 BP Pulse Ox 12/19/19 09:25 112/66 97 12/19/19 09:15 95/51 L 99 12/19/19 09:05 113/64 100 12/19/19 08:56 113/65 100 12/19/19 07:36 110/80 98 12/19/19 07:03 110/73 97 12/18/19 23:23 94/58 L 97 12/18/19 20:37 98 12/18/19 20:24 100 07/29/20 20:00 100 12/18/19 19:50 98 12/18/19 19:40 100 12/18/19 19:31 100 12/18/19 19:30 99 12/18/19 19:20 100 12/18/19 19:10 92 12/18/19 19:00 98 12/18/19 18:50 98 12/18/19 18:40 99 12/18/19 18:34 12/18/19 18:20 99 12/18/19 18:10 99 12/18/19 18:01 99 12/18/19 18:00 99 12/18/19 17:50 98 12/18/19 17:40 97 12/18/19 17:39 97 12/18/19 17:30 97 12/18/19 17:26 98 12/18/19 16:55 97 Pain Intensity Right Shoulder: Pain Intensity: 4 Right Abdomen: Pain Intensity: 4 Transfer of Care Handoff Completed per policy Notes Mental Status: alert / awake / arousable Patient Amnestic to Procedure: Yes Nausea / Vomiting: adequately controlled Pain: adequately controlled Airway Patency, RR, SpO2: stable & adequate BP & HR: stable & adequate Hydration State: stable & adequate Anesthetic Complications: no major complications apparent
[2019-12-19] MEDS ORDERED: HYDROCODONE/ACETAMOPHEN 5/325MG TAB PO PRN (09:55)
[2019-12-19] MEDS ORDERED: IBUPROFEN 600 MG TAB PO PRN (09:55)
[2019-12-19] MEDS: ESCITALOPRAM OXALATE 10 MG TAB PO SCH (10:00)
--- NOTE | 2019-12-19 10:24 | Operative Report (OR) ---
DATE OF OPERATION: 12/19/2019 NAME OF OPERATION: Laparoscopic cholecystectomy. PREOPERATIVE DIAGNOSIS: Biliary colic. POSTOPERATIVE DIAGNOSIS: Biliary colic with chronic cholecystitis. STAFF SURGEON: Mich Heredia MD. ANESTHESIA: General. DESCRIPTION OF PROCEDURE: The patient was brought in the operating room and placed on the operating table in supine position. Her abdomen was prepped and draped in usual fashion. 0.5% plain Marcaine was used to anesthetize all incisions. Incision was made just inside the umbilicus, carrying dissection down, placing a Veress needle producing pneumoperitoneum. An 11 mm port was placed at this level and then under visualization, after appropriate pneumoperitoneum, three 5 mm ports were placed, 1 cephalad and 2 laterally. Gallbladder was grasped and retracted. It was aspirated of bile. Dissection was carried out the andres hepatis, identifying what appeared to be scar tissue from chronic inflammation. Cystic duct and cystic artery were identified, clipped and transected. The gallbladder was dissected away from the liver bed in the usual fashion. It was placed in an Endobag. After appropriate irrigation and hemostasis, the Endobag was removed through the umbilical site. All ports were then removed. Fascia at the umbilicus closed using 0 Vicryl suture, then the skin reapproximated using subcuticular 4-0 Monocryl, Dermabond at the umbilicus and Steri-Strips on the other sites. The patient was transferred to recovery room in stable condition. I attest to the content of the Intraoperative Record and any orders documented therein. Any exception s are noted below.
[2019-12-19] MEDS: HYDROmorphone INJ 0.5 MG/0.5 ML SYR IV PRN ×2 (10:25→11:02)
[2019-12-19] MEDS: SODIUM CHLORIDE 0.9% 1000ML 1,000 ML IV SCH ×2 (10:36→22:29)
[2019-12-19] MEDS: HYDROCODONE/ACETAMOPHEN 5/325MG TAB PO PRN ×2 (13:01→18:12)
[2019-12-20] MEDS: HYDROCODONE/ACETAMOPHEN 5/325MG TAB PO PRN ×2 (01:07→08:45)
--- NOTE | 2019-12-20 07:12 | Surgery Progress Note ---
Date of Service December 20, 2019 Assessment & Plan (1) Biliary colic: evidence of chronic cholecystitis some pain min nausea wounds stable see how she does with pain control and diet Results & Data Vital Signs (Past 12 Hours) Vital Signs Temp Pulse Resp BP Pulse Ox 12/20/19 07:05 37.1 C 59 L 16 114/71 97 12/20/19 04:00 37.0 C 65 14 110/66 97 12/19/19 23:20 37.1 C 55 L 14 110/65 97 12/19/19 19:15 36.7 C 68 16 110/60 96 PG Care Time/CCT Total # of Minutes Spent Total Time Spent with Patient: Total time spent is greater than 50% in coordination of care (as documented) at patient's floor/unit and/or counseling patient: Coding Level of Care Code None Diagnoses Biliary colic K80.50
[2019-12-20] MEDS: ESCITALOPRAM OXALATE 10 MG TAB PO SCH (08:45)
--- NOTE | 2019-12-23 13:37 | Discharge Summary (DS) ---
PRINCIPAL DIAGNOSIS: Biliary colic, nausea and vomiting. PROCEDURES: The patient underwent laparoscopic cholecystectomy. HISTORY OF PRESENT ILLNESS: The patient is a 24-year-old female presenting to the Emergency Room twice within 2-3 days for abdominal pain and persistent nausea and vomiting and symptoms typical of biliary colic, although her studies were essentially negative. She did have some gallbladder distention on her studies. On 12/19/2019, she underwent laparoscopic cholecystectomy, which she tolerated very well. She progressed well and she was felt stable for discharge on 12/20/2019 to be followed in the surgical clinic within 1-2 weeks.
== END 2019-12-20 11:18 | disposition home or self-care (01) ==
LOC: ED 16:52 → INTOOBSV 19:31 → 3N 19:31

== ENCOUNTER 2023-01-20 08:25 | Observation (INO) ==
--- NOTE | 2023-01-20 08:54 | Emergency Department Note ---
ED Provider Note INFORMANT: [Patient] ED PROVIDER(S): [] CHIEF COMPLAINT: [] PLAN: Disposition: [] Condition: [Good] Outpatient prescription management: [none] Referral: [] MEDICAL DECISION MAKING: Chronic conditions affecting care: [none] [Note all interventions, Interpret results, Remember additional problems, list any social risk factors] [Document consults/transfers/case management discussions-also decisions not to test/admit/transfer] After review of the information above and other included data, I feel the patient [disposition]. Triage Nursing notes reviewed and agree them. Vital Signs: reviewed and remarkable for [no significant abnormalities] Prior /Outside records reviewed: [none] Differential diagnosis: [] Diagnostics, as interpreted by me: ECG: [none] Cardiac Monitoring: [none] Medical decision rules: [none] Imaging studies: [] HPI: [] PAST MEDICAL HISTORY: [See Below], [] PAST SURGICAL HISTORY: [See Below], [] SOCIAL HISTORY: [See Below], [] HOME MEDICATIONS: [See Below] ALLERGIES: [See Below] VITALS: [See Below] PHYSICAL EXAMINATION: [] Past Med/Surg History Medical History Depression Migraine Surgical History H/O section History of surgical removal of pilonidal cyst Hx laparoscopic cholecystectomy (12/19/19) Laparoscopic Cholecystectomy Dr. Heredia 12/19/2019 Family History Grandmother Gallbladder disease Cervical cancer great grammother maternal Mother Gallbladder disease Aunt Gallbladder disease Breast cancer paternal Grandfather (Maternal) Lung cancer Denies family history of Ovarian cancer Colorectal cancer Social History Smoking Status: Never smoker Do You Dip or Chew Tobacco: No; Hx Alcohol Use: Yes Hx Substance Use: No Preferred Language: [place] Communication Ability: Effective Icu Rn Required: No Beliefs That Will Affect Care: None marital status: Current Living Situation: Spouse current occupational status: employed Feels Safe at Home: Yes Assistive Devices: None Allergies Allergies Allergy/AdvReac Type Severity Reaction Status Date / Time sumatriptan [From Imitrex] Allergy Severe felt like Verified 12/14/22 16:03 throat was swelling Home Meds Home Medications Medication Instructions Recorded Confirmed venlafaxine 150 mg 150 mg PO QAM 10/13/21 12/14/22 capsule,extended release 24 hr (Effexor XR) hydroxyzine HCl 25 mg tablet 25 mg PO Q6H PRN Anxiety 12/14/22 12/14/22 lamotrigine 100 mg tablet 50 mg PO QAM 12/14/22 12/14/22 lorazepam 0.5 mg tablet 0.5 mg PO DAILY PRN Anxiety 12/14/22 12/14/22 multivitamin 1 tab PO QAM 12/14/22 12/14/22 Results & Data (ED) Vital Signs Vital Signs - 24 hr 01/20/23 08:29 Temperature 37.2 C Temperature Source Oral Pulse Rate 103 H Respiratory Rate 18 Blood Pressure 119/78 Blood Pressure Mean 91 Blood Pressure Position Sitting Pulse Oximetry 98 Oxygen Delivery Method Room Air Sepsis Recent Fever Within 48 Hours No Sepsis New/Unexplained Change in Mental Status No Sepsis Action Taken by Nursing No Action Required Discharge Plan Visit Data Chief Complaint: Infection Stated Complaint: POSSIBLE INFECTION OF SURGERY SIGHT, FEVER ED Provider: Nahun Olson Forms Stand Alone Forms: [facility] Prescriptions Prescriptions: No Action venlafaxine [Effexor XR] 150 mg capsule,extended release 24hr 150 mg PO QAM multivitamin Tablet 1 tab PO QAM lorazepam 0.5 mg tablet 0.5 mg PO DAILY PRN (Reason: Anxiety) hydroxyzine HCl 25 mg tablet 25 mg PO Q6H PRN (Reason: Anxiety) lamotrigine 100 mg tablet 50 mg PO QAM Referrals Referrals: Girma Navarrete MD [Primary Care Provider] -
--- NOTE | 2023-01-20 09:08 | Emergency Department Note ---
History of Present Illness General Chief complaint: Infection Stated complaint: POSSIBLE INFECTION OF SURGERY SIGHT, FEVER Time Seen by Provider: 01/20/23 08:32 History of Present Illness Maximum Pain Intensity: 6 27 YO F w/ hx of pilionidal cysts presenting for surgical wound problem. patient states she had surgery to remove tract on 12/30 and since then has had increasing pain/swelling to the area. She noticed fever of 101 today which prompted her to come to the ED. She has noticed drainage, white/bloody, as well as firmness/pain around the region. She notes more pain than with her previous cysts. slight nausea, without vomiting. No SOB, CP, diarrhea, constipation. No rigors. Home Medications Medication Instructions Recorded Confirmed Type venlafaxine 150 mg 150 mg PO QAM 10/13/21 01/20/23 History capsule,extended release 24 hr (Effexor XR) hydroxyzine HCl 25 mg tablet 25 mg PO Q6H PRN Anxiety 12/14/22 01/20/23 History lamotrigine 100 mg tablet 50 mg PO QAM 12/14/22 01/20/23 History lorazepam 0.5 mg tablet 0.5 mg PO DAILY PRN Anxiety 12/14/22 01/20/23 History multivitamin 1 tab PO QAM 12/14/22 01/20/23 History Allergies Allergy/AdvReac Type Severity Reaction Status Date / Time sumatriptan [From Imitrex] Allergy Severe felt like Verified 12/14/22 16:03 throat was swelling Past Med/Surg History Medical History (Updated 01/20/23 @ 16:46 by Nahun Olson MD) Depression Migraine Surgical History (Updated 01/20/23 @ 12:47 by Tashia Benito PA-C) H/O section History of surgical removal of pilonidal cyst Hx laparoscopic cholecystectomy (12/19/19) Laparoscopic Cholecystectomy Dr. Heredia 12/19/2019 Family History Grandmother Gallbladder disease Cervical cancer great grammother maternal Mother Gallbladder disease Aunt Gallbladder disease Breast cancer paternal Grandfather (Maternal) Lung cancer Denies family history of Ovarian cancer Colorectal cancer Social History Smoking Status: Never smoker Do You Dip or Chew Tobacco: No; Hx Alcohol Use: Yes Hx Substance Use: No Preferred Language: Burkinan Communication Ability: Effective Director Of Application Development Required: No Beliefs That Will Affect Care: None marital status: Current Living Situation: Spouse current occupational status: employed Feels Safe at Home: Yes Assistive Devices: None Review of Systems See HPI for pertinent positives & negatives. All systems reviewed & are unremarkable except as noted in HPI & below Physical Exam Vital Signs Vital Signs - 24 hr 01/20/23 08:29 Temperature 37.2 C Temperature Source Oral Pulse Rate 103 H Respiratory Rate 18 Blood Pressure 119/78 Blood Pressure Mean 91 Blood Pressure Position Sitting Pulse Oximetry 98 Oxygen Delivery Method Room Air Sepsis Recent Fever Within 48 Hours No Sepsis New/Unexplained Change in Mental Status No Sepsis Action Taken by Nursing No Action Required PHYSICAL EXAM: Vital signs reviewed. General: Well-appearing, in no significant distress. HEENT: No scleral icterus, PERRLA, neck supple. Atraumatic. Cardiovascular: Regular rate and rhythm, no extra sounds. Pulmonary: Clear to auscultation bilaterally, normal work of breathing. Abdomen: Soft, nontender, nondistended, positive bowel sounds. : Surgical wound overlying above rectum, well healing, scant white discharge, minimal erythema surrounding with induration and pain to palpation, no fluctuance, no warmth Musculoskeletal: Atraumatic, no peripheral edema. Neurologic: Patient awake alert and oriented x 3, speech is clear Skin: Warm, dry, no rash Course Administered Medications Ampicillin Sodium/Sulbactam Sodium 3,000 mg/ Sodium Chloride 108 mls @ 200 mls/hr IV Q6H [facility]; Protocol Stop: 01/27/23 16:29 Last Admin: 01/20/23 16:32 Dose: 200 mls/hr Documented By: ACC Oxycodone HCl (Oxycodone Hcl Ir 5 Mg Tab (Immediate Release)) 10 mg PO Q4H PRN PRN Reason: SEVERE Pain (7,8,9,10) Stop: 02/03/23 16:02 Last Admin: 01/20/23 16:24 Dose: 10 mg Documented By: ES Discontinued Medications Fentanyl Citrate (Fentanyl Citrate Pf 100 Mcg/2 Ml Vial) 50 mcg IV NOW STA Stop: 01/20/23 11:53 Last Admin: 01/20/23 12:01 Dose: 50 mcg Documented By: KELLI Ioversol (Optiray 320 100ml) 92 ml IV ONCE ONE Stop: 01/20/23 10:27 Last Admin: 01/20/23 10:26 Dose: 92 ml Documented By: BECKY Ketorolac Tromethamine (Ketorolac Tromethamine 15 Mg/Ml Vial) 15 mg IV NOW ONE Stop: 01/20/23 09:42 Last Admin: 01/20/23 09:52 Dose: 15 mg Documented By: PAOLA Medical Decision Making Differential Diagnosis Surgical wound abscess, cellulitis Laboratory Data 01/20/23 09:00 01/20/23 09:00 Lab Results 01/20/23 01/20/23 01/20/23 Range/Units 09:00 09:00 09:09 WBC 12.73 H (4.8-10.8) K/ul RBC 4.28 (4.20-5.40) M/uL Hgb 12.0 (12.0-16.0) g/dl Hct 36.2 L (37.0-47.0) % MCV 84.6 (80.0-100.0) fL MCH 28.0 (25.0-34.0) pg MCHC 33.1 (32.0-36.0) g/dL RDW Std Deviation 39.6 (36.4-46.3) fL RDW Coeff of Roque 13.0 (11.5-14.5) % Plt Count 189 (130-400) K/uL MPV 11.4 (9.4-12.4) fL Immature Gran % (Auto) 0.3 % Neut % (Auto) 76.8 % Lymph % (Auto) 16.7 % Thomas % (Auto) 5.7 % Eos % (Auto) 0.4 % Baso % (Auto) 0.1 % Neut # (Auto) 9.77 H (1.40-6.50) K/uL Lymph # (Auto) 2.13 (1.20-3.40) K/uL Thomas # (Auto) 0.73 H (0.11-0.59) K/uL Eos # (Auto) 0.05 (0.00-0.50) K/uL Baso # (Auto) 0.01 (0.00-0.20) K/uL Immature Gran # (Auto) 0.04 (0.01-0.20) K/uL Sodium 136 (136-145) mmol/L Potassium 3.4 L (3.5-5.1) mmol/L Chloride 103 (98-107) mmol/L Carbon Dioxide 26 (21-32) mmol/L Anion Gap 7 (3-11) BUN 10 (6-23) mg/dl Creatinine 0.71 (0.6-1.2) mg/dl Est Cr Clr Drug Dosing Not Reportable Est GFR ( Amer) 133.4 ml/min Est GFR (Non-Af Amer) 115.1 ml/min BUN/Creatinine Ratio 14.1 (10-20) Glucose 93 (70-99(Fasting)) mg/dl Lactate 0.6 (0.4-2.0) mmol/L Calcium 9.5 (8.6-10.3) mg/dl Total Bilirubin 0.6 (0.2-1.0) mg/dl AST 14 (13-39) U/L ALT 11 (7-52) U/L Alkaline Phosphatase 43 (34-104) U/L Total Protein 7.8 (6.0-8.3) gm/dl Albumin 5.1 H (3.4-5.0) gm/dl Globulin 2.7 (2.5-4.0) gm/dl Albumin/Globulin Ratio 1.9 (0.9-2) Urine Test (Negative) SARS-CoV-2, RNA, NAAT (NEGATIVE) 01/20/23 01/20/23 Range/Units 09:11 09:55 WBC (4.8-10.8) K/ul RBC (4.20-5.40) M/uL Hgb (12.0-16.0) g/dl Hct (37.0-47.0) % MCV (80.0-100.0) fL MCH (25.0-34.0) pg MCHC (32.0-36.0) g/dL RDW Std Deviation (36.4-46.3) fL RDW Coeff of Roque (11.5-14.5) % Plt Count (130-400) K/uL MPV (9.4-12.4) fL Immature Gran % (Auto) % Neut % (Auto) % Lymph % (Auto) % Thomas % (Auto) % Eos % (Auto) % Baso % (Auto) % Neut # (Auto) (1.40-6.50) K/uL Lymph # (Auto) (1.20-3.40) K/uL Thomas # (Auto) (0.11-0.59) K/uL Eos # (Auto) (0.00-0.50) K/uL Baso # (Auto) (0.00-0.20) K/uL Immature Gran # (Auto) (0.01-0.20) K/uL Sodium (136-145) mmol/L Potassium (3.5-5.1) mmol/L Chloride (98-107) mmol/L Carbon Dioxide (21-32) mmol/L Anion Gap (3-11) BUN (6-23) mg/dl Creatinine (0.6-1.2) mg/dl Est Cr Clr Drug Dosing Est GFR ( Amer) ml/min Est GFR (Non-Af Amer) ml/min BUN/Creatinine Ratio (10-20) Glucose (70-99(Fasting)) mg/dl Lactate (0.4-2.0) mmol/L Calcium (8.6-10.3) mg/dl Total Bilirubin (0.2-1.0) mg/dl AST (13-39) U/L ALT (7-52) U/L Alkaline Phosphatase (34-104) U/L Total Protein (6.0-8.3) gm/dl Albumin (3.4-5.0) gm/dl Globulin (2.5-4.0) gm/dl Albumin/Globulin Ratio (0.9-2) Urine Test Negative (Negative) SARS-CoV-2, RNA, NAAT NEGATIVE (NEGATIVE) Imaging Data Radiologist's Impression: Abdomen/Pelvis CT 01/20/23 08:47 CT SCAN OF THE ABDOMEN AND PELVIS WITH IV CONTRAST CLINICAL HISTORY: Pilonidal cyst. Erythema and pus. COMPARISON STUDY: Abdominal CT dated 12/14/2022. TECHNIQUE: Following the IV administration of 92 cc of Optiray 320, CT scan of the abdomen and pelvis is performed from the lung bases to the proximal femora. Images are reviewed in the axial, sagittal, and coronal planes. IV contrast was administered without complication. A dose lowering technique was utilized adhering to the principles of ALARA. CT DOSE: 1304.47 mGy.cm FINDINGS: Lung bases: The heart is normal in size and without pericardial effusion. The lung bases are clear. Liver: The contrast-enhanced liver is normal in size, contour, and attenuation. There is minimal central intrahepatic biliary ductal dilatation. The hepatic veins and portal veins are patent. Gallbladder: Surgically absent noting clips in the gallbladder fossa. Spleen: Normal in size and attenuation. Pancreas: Unremarkable. Adrenal glands: Unremarkable. Kidneys: The contrast enhanced kidneys are normal in size and without hydronephrosis. The kidneys enhance symmetrically. Abdominal vasculature: The abdominal aorta is normal in course and caliber. Bowel: There is moderate colonic fecal retention. No bowel obstruction is seen. The cecum is located in the pelvis. The appendix is well-visualized and normal. Peritoneum: There is no intraperitoneal free air or abdominal ascites. There is a fat-containing umbilical hernia. Lymphadenopathy: None. Pelvic viscera: The bladder, uterus, and adnexa are normal as visualized. There are bilateral ovarian follicles. Skeletal structures: No lytic or blastic lesions are seen. Soft tissues: There is significant subcutaneous soft tissue inflammation and fluid seen in the posterior midline at/above the level of the buttock. There is a small fluid collection seen just deep to the dermal surface posterior to the lower sacrum (S4-S5). This measures 3.3 x 2.1 x 1.6 cm as seen on image #244 comment there is overlying terminal thickening. This does not appear to extend deep to the underlying sacrum/coccyx. IMPRESSION: 1. There is evidence of cellulitis with a small abscess in the soft tissues of the lower back/upper buttock as above. This is located just deep to the dermal surface, and does not appear to extend to the underlying sacrum/coccyx. 2. The abdominal viscera is normal as visualized noting status post cholecystectomy. ACT 112: Negative or not required by law. Electronically signed by: Kirill Damico M.D. 01/20/2023 10:49 AM MDM Narrative This is a 47-year-old female presenting for pain/drainage from recent surgical site. Patient CT imaging does reveal cellulitis/abscess deep to dermis. Discussed with on-call surgeon here who will discuss with patient the actual surgeon. Overall patient was admitted for IV antibiotics overnight. Patient blood work showed a slight leukocytosis to 12 but otherwise reassuring. EKG reviewed by me showing normal sinus rhythm at a rate of 60, normal intervals, normal axis, no ST segment elevations, no T wave inversions, not consistent with STEMI. Impression & Plan Cellulitis, Infected surgical wound Discharge Plan Visit Data Chief Complaint: Infection Stated Complaint: POSSIBLE INFECTION OF SURGERY SIGHT, FEVER ED Provider: Nahun Olson Discharge Problem: Cellulitis, Infected surgical wound Patient Disposition: Admitted As Inpatient Discharge Instructions Interventions: ED Discharge Assessment Last Done: 01/20/23 16:03
[2023-01-20 09:35] LABS: Basophils # (auto) 0.01 K/uL (0.00-0.20); Basophils % (auto) 0.1 %; Eosinophils # (auto) 0.05 K/uL (0.00-0.50); Eosinophils % (auto) 0.4 %; Hematocrit (blood only) 36.2 % (37.0-47.0); Immature Granulocytes # (auto) 0.04 K/uL (0.01-0.20); Immature Granulocytes % (auto) 0.3 %; Lymphocytes # (auto) 2.13 K/uL (1.20-3.40); Lymphocytes % (auto) 16.7 %; Mean Corpuscular Hgb Conc 33.1 g/dL (32.0-36.0); Mean Corpuscular Volume 84.6 fL (80.0-100.0); Mean Platelet Volume 11.4 fL (9.4-12.4); Monocytes # (auto) 0.73 K/uL (0.11-0.59); Monocytes % (auto) 5.7 %; Neutrophils # (auto) 9.77 K/uL (1.40-6.50); Neutrophils % (auto) 76.8 %; Platelet Count 189 K/uL (130-400); RDW Standard Deviation 39.6 fL (36.4-46.3); Red Blood Count 4.28 M/uL (4.20-5.40); White Blood Count 12.73 K/ul (4.8-10.8)
[2023-01-20] MEDS ORDERED: KETOROLAC TROMETHAMINE 15 MG/ML VIAL IV ONE (09:41)
[2023-01-20 09:49] LABS: Alanine Aminotransferase 11 U/L (7-52); Albumin Globulin Ratio 1.9 (0.9-2); Albumin Level 5.1 gm/dl (3.4-5.0); Alkaline Phosphatase 43 U/L (34-104); Anion Gap 7 (3-11); Aspartate Aminotransferase 14 U/L (13-39); BUN Creatinine Ratio 14.1 (10-20); Bilirubin,Total 0.6 mg/dl (0.2-1.0); Blood Urea Nitrogen 10 mg/dl (6-23); Calcium 9.5 mg/dl (8.6-10.3); Carbon Dioxide 26 mmol/L (21-32); Chloride 103 mmol/L (98-107); Est GFR (African American) 133.4 ml/min; Est GFR (Non-African American) 115.1 ml/min; Globulin 2.7 gm/dl (2.5-4.0); Glucose 93 mg/dl (70-99(Fasting)); Potassium 3.4 mmol/L (3.5-5.1); Sodium 136 mmol/L (136-145); Total Protein 7.8 gm/dl (6.0-8.3)
[2023-01-20] MEDS ORDERED: OPTIRAY 320 100ml IV ONE (10:26)
--- NOTE | 2023-01-20 10:50 | CT Scan Report ---
CT SCAN OF THE ABDOMEN AND PELVIS WITH IV CONTRAST CLINICAL HISTORY: Pilonidal cyst. Erythema and pus. COMPARISON STUDY: Abdominal CT dated 12/14/2022. TECHNIQUE: Following the IV administration of 92 cc of Optiray 320, CT scan of the abdomen and pelvi s is performed from the lung bases to the proximal femora. Images are reviewed in the axial, sagittal , and coronal planes. IV contrast was administered without complication. A dose lowering technique wa s utilized adhering to the principles of ALARA. CT DOSE: 1304.47 mGy.cm FINDINGS: Lung bases: The heart is normal in size and without pericardial effusion. The lung bases are clear. Liver: The contrast-enhanced liver is normal in size, contour, and attenuation. There is minimal cent ral intrahepatic biliary ductal dilatation. The hepatic veins and portal veins are patent. Gallbladder: Surgically absent noting clips in the gallbladder fossa. Spleen: Normal in size and attenuation. Pancreas: Unremarkable. Adrenal glands: Unremarkable. Kidneys: The contrast enhanced kidneys are normal in size and without hydronephrosis. The kidneys enh ance symmetrically. Abdominal vasculature: The abdominal aorta is normal in course and caliber. Bowel: There is moderate colonic fecal retention. No bowel obstruction is seen. The cecum is located in the pelvis. The appendix is well-visualized and normal. Peritoneum: There is no intraperitoneal free air or abdominal ascites. There is a fat-containing umbi lical hernia. Lymphadenopathy: None. Pelvic viscera: The bladder, uterus, and adnexa are normal as visualized. There are bilateral ovarian follicles. Skeletal structures: No lytic or blastic lesions are seen. Soft tissues: There is significant subcutaneous soft tissue inflammation and fluid seen in the customer operations manager ior midline at/above the level of the buttock. There is a small fluid collection seen just deep to th e dermal surface posterior to the lower sacrum (S4-S5). This measures 3.3 x 2.1 x 1.6 cm as seen on i mage #[id number] comment there is overlying terminal thickening. This does not appear to extend deep to the underlying sacrum/coccyx. IMPRESSION: 1. There is evidence of cellulitis with a small abscess in the soft tissues of the lower back/upper b uttock as above. This is located just deep to the dermal surface, and does not appear to extend to th e underlying sacrum/coccyx. 2. The abdominal viscera is normal as visualized noting status post cholecystectomy. ACT 112: Negative or not required by law. Electronically signed by: Kirill Damico M.D. 01/20/2023 10:49 AM
[2023-01-20] MEDS ORDERED: fentaNYL BOLUS from BAG IV PRN (11:13)
[2023-01-20] MEDS ORDERED: fentaNYL citrate PF 100 MCG/2 ML VIAL IV STA (11:52)
--- NOTE | 2023-01-20 12:35 | History & Physical Report ---
I saw and examined this patient with the surgical PA's. I agree with this plan. Will f/u in the am. Date of Service January 20, 2023 Assessment & Plan (1) History of surgical removal of pilonidal cyst: Plan: This is a 27yF with a PMH of depression who presents to the [facility] ED on 01/20/23 with complaints of pain, warmth, and drainage from her recent pilonidal cystectomy incision, performed on 12/30/[address] Saleh. She had half of her sutures removed this past Monday, then the following Monday developed increasing pain/warmth/drainage from the surgical site. This was associated with some fevers as of yesterday. She presented to the ER due to ongoing symptoms. In the ER she underwent a CT a/p that revealed a 3.3 x 2.1 x 1.6 cm fluid collection concerning for abscess in addition with cellulitis. Labs show WBC 12.7, Hbg 12. Vitals show she is afebrile and slightly tachycardic to 100's. On exam the buttock cleft evaluated in area of recent pilonidal surgery, + erythema and tenderness along incision, there is no extensive drainage, some moisture damage to surrounding skin noted inferiorly, no obvious area of apparent abscess. Well approximated. We placed some dry gauze in the area. For now we will admit patient for overnight observation and start IV abx to see if this helps her symptoms. She may have a diet + pain control. We will order a wound culture should it start draining. No plans for any I&D at this time but will follow closely. History of Present Illness Primary Care Provider: Girma Navarrete MD This is a 27yF with a PMH of depression who presents to the [facility] ED on 01/20/23 with complaints of pain, warmth, and drainage from her recent pilonidal cystectomy incision. The patient had surgery on 12/30/22 at [facility] with Dr. Saleh. She was doing well initially following procedure. She had follow up in the office on 01/16 and half of her sutures were removed, she noted no issues at post op visit. Then on Monday patient developed increasing redness and warmth in the area. This has become worse and was associated with some drainage as well. She developed a fever yesterday of 101F and decided to call the office. She was instructed to be further evaluated in the ER. In the ER she underwent a CT a/p that revealed a 3.3 x 2.1 x 1.6 cm fluid collection concerning for abscess in addition with cellulitis. Patient states it drained a moderate amount en-route to the CT scanner which appeared purulent mixed with some blood, now it has lessened. She reports some nausea and chills. No CP/SOB, trouble with BMs, abdominal pain. Allergies Allergy/AdvReac Type Severity Reaction Status Date / Time sumatriptan [From Imitrex] Allergy Severe felt like Verified 12/14/22 16:03 throat was swelling Home Medications Medication Instructions Recorded Confirmed Type venlafaxine 150 mg 150 mg PO QAM 10/13/21 01/20/23 History capsule,extended release 24 hr (Effexor XR) hydroxyzine HCl 25 mg tablet 25 mg PO Q6H PRN Anxiety 12/14/22 01/20/23 History lamotrigine 100 mg tablet 50 mg PO QAM 12/14/22 01/20/23 History lorazepam 0.5 mg tablet 0.5 mg PO DAILY PRN Anxiety 12/14/22 01/20/23 History multivitamin 1 tab PO QAM 12/14/22 01/20/23 History Past Med/Surg History Medical History Depression Migraine Surgical History (Updated 01/20/23 @ 12:47 by Tashia Benito PA-C) H/O section History of surgical removal of pilonidal cyst Hx laparoscopic cholecystectomy (12/19/19) Laparoscopic Cholecystectomy Dr. Heredia 12/19/2019 Family History Grandmother Gallbladder disease Cervical cancer great grammother maternal Mother Gallbladder disease Aunt Gallbladder disease Breast cancer paternal Grandfather (Maternal) Lung cancer Denies family history of Ovarian cancer Colorectal cancer Social History Smoking Status: Never smoker Do You Dip or Chew Tobacco: No; Hx Alcohol Use: Yes Hx Substance Use: No Preferred Language: [place] Communication Ability: Effective Associate Team Physician Required: No Beliefs That Will Affect Care: None marital status: Current Living Situation: Spouse current occupational status: employed Feels Safe at Home: Yes Assistive Devices: None Review of Systems Constitutional: + fever and + chills Respiratory: no dyspnea Cardiovascular: no chest pain Gastrointestinal: + nausea; no abdominal pain and no vomiting Pain along buttock cleft and area of surgery, redness, warmth, + drainage Physical Exam Physical Exam: awake/alert Constitutional: well developed, well nourished and comfortable; no acute distress Respiratory: normal respiratory effort Skin: buttock cleft evaluated in area of recent pilonidal surgery, + erythema and tenderness along incision, there is no extensive drainage, some moisture damage to surrounding skin noted, no obvious area of apparent abscess Results & Data Results & Data Vital Signs (Past 12 Hours) Vital Signs Temp Pulse Resp BP Pulse Ox O2 Del Method 01/20/23 08:29 37.2 C 103 H 18 119/78 98 Room Air Diagnostic Findings CT SCAN OF THE ABDOMEN AND PELVIS WITH IV CONTRAST CLINICAL HISTORY: Pilonidal cyst. Erythema and pus. COMPARISON STUDY: Abdominal CT dated 12/14/2022. TECHNIQUE: Following the IV administration of 92 cc of Optiray 320, CT scan of the abdomen and pelvis is performed from the lung bases to the proximal femora. Images are reviewed in the axial, sagittal, and coronal planes. IV contrast was administered without complication. A dose lowering technique was utilized adhering to the principles of ALARA. CT DOSE: 1304.47 mGy.cm FINDINGS: Lung bases: The heart is normal in size and without pericardial effusion. The lung bases are clear. Liver: The contrast-enhanced liver is normal in size, contour, and attenuation. There is minimal central intrahepatic biliary ductal dilatation. The hepatic veins and portal veins are patent. Gallbladder: Surgically absent noting clips in the gallbladder fossa. Spleen: Normal in size and attenuation. Pancreas: Unremarkable. Adrenal glands: Unremarkable. Kidneys: The contrast enhanced kidneys are normal in size and without hydronephrosis. The kidneys enhance symmetrically. Abdominal vasculature: The abdominal aorta is normal in course and caliber. Bowel: There is moderate colonic fecal retention. No bowel obstruction is seen. The cecum is located in the pelvis. The appendix is well-visualized and normal. Peritoneum: There is no intraperitoneal free air or abdominal ascites. There is a fat-containing umbilical hernia. Lymphadenopathy: None. Pelvic viscera: The bladder, uterus, and adnexa are normal as visualized. There are bilateral ovarian follicles. Skeletal structures: No lytic or blastic lesions are seen. Soft tissues: There is significant subcutaneous soft tissue inflammation and fluid seen in the posterior midline at/above the level of the buttock. There is a small fluid collection seen just deep to the dermal surface posterior to the lower sacrum (S4-S5). This measures 3.3 x 2.1 x 1.6 cm as seen on image #244 comment there is overlying terminal thickening. This does not appear to extend deep to the underlying sacrum/coccyx. IMPRESSION: 1. There is evidence of cellulitis with a small abscess in the soft tissues of the lower back/upper buttock as above. This is located just deep to the dermal surface, and does not appear to extend to the underlying sacrum/coccyx. 2. The abdominal viscera is normal as visualized noting status post cholecystectomy. ACT 112: Negative or not required by law. Electronically signed by: Kiirll Damico M.D. 01/20/2023 10:49 AM PG Care Time/CCT Total # of Minutes Spent Total Time Spent with Patient: Total time spent is greater than 50% in coordination of care (as documented) at patient's floor/unit and/or counseling patient: Coding Level of Care Code 46570 INT INP/OBS CARE 1/40MIN Diagnoses History of surgical removal of pilonidal cyst Z98.890
[2023-01-20 13:07] LABS: Pregnancy Test, Urine Negative (Negative)
[2023-01-20] MEDS ORDERED: MoRPHine SULFATE 2 MG/ML CARP IV PRN (16:03)
[2023-01-20] MEDS ORDERED: hydrOXYzine HCl 25 MG TAB PO PRN (16:03)
[2023-01-20] MEDS ORDERED: oxyCODONE HCL IR 5 MG TAB (IMMEDIATE RELEASE) PO PRN (16:03)
[2023-01-20] MEDS ORDERED: LORazepam 0.5 MG TAB PO PRN (16:03)
[2023-01-20] MEDS: oxyCODONE HCL IR 5 MG TAB (IMMEDIATE RELEASE) PO PRN ×2 (16:24→20:31)
[2023-01-20] MEDS: AMPICILLIN/SULBACTAM SOD 3,000 MG in 0.9 % SODIUM CHLORIDE 100 ML IV SCH ×2 (16:32→22:08)
[2023-01-20] MEDS: ACETAMINOPHEN 325 MG TAB PO PRN (19:55)
[2023-01-20] MEDS: ONDANSETRON INJ 2 MG/ML 2 ML VIAL IV PRN (21:40)
[2023-01-21] MEDS: oxyCODONE HCL IR 5 MG TAB (IMMEDIATE RELEASE) PO PRN ×5 (01:07→20:46)
[2023-01-21] MEDS ORDERED: PROMETHAZINE HCL 6.25 MG in SODIUM CHLORIDE 0.9% 50 ML IV STA (01:20)
[2023-01-21] MEDS: AMPICILLIN/SULBACTAM SOD 3,000 MG in 0.9 % SODIUM CHLORIDE 100 ML IV SCH ×4 (04:37→22:23)
[2023-01-21 06:30] LABS: Eosinophils # (auto) 0.09 K/uL (0.00-0.50); Eosinophils % (auto) 1.5 %; Hematocrit (blood only) 32.4 % (37.0-47.0); Hemoglobin 10.5 g/dl (12.0-16.0); Immature Granulocytes # (auto) 0.01 K/uL (0.01-0.20); Immature Granulocytes % (auto) 0.2 %; Lymphocytes # (auto) 1.65 K/uL (1.20-3.40); Lymphocytes % (auto) 27.8 %; Mean Corpuscular Hgb Conc 32.4 g/dL (32.0-36.0); Mean Corpuscular Volume 86.4 fL (80.0-100.0); Mean Platelet Volume 11.4 fL (9.4-12.4); Monocytes # (auto) 0.53 K/uL (0.11-0.59); Monocytes % (auto) 8.9 %; Neutrophils # (auto) 3.66 K/uL (1.40-6.50); Neutrophils % (auto) 61.6 %; Platelet Count 163 K/uL (130-400); RDW Coefficient of Variation 13.1 % (11.5-14.5); RDW Standard Deviation 40.8 fL (36.4-46.3); Red Blood Count 3.75 M/uL (4.20-5.40); White Blood Count 5.94 K/ul (4.8-10.8)
[2023-01-21 07:04] LABS: Anion Gap 3 (3-11); BUN Creatinine Ratio 6.5 (10-20); Blood Urea Nitrogen 5 mg/dl (6-23); Calcium 8.6 mg/dl (8.6-10.3); Carbon Dioxide 31 mmol/L (21-32); Chloride 107 mmol/L (98-107); Est GFR (African American) 120.9 ml/min; Est GFR (Non-African American) 104.3 ml/min; Glucose 108 mg/dl (70-99(Fasting)); Potassium 3.6 mmol/L (3.5-5.1); Sodium 141 mmol/L (136-145)
[2023-01-21] MEDS: ONDANSETRON INJ 2 MG/ML 2 ML VIAL IV PRN (07:28)
[2023-01-21] MEDS: MULTIVITAMIN TAB PO SCH (08:29)
[2023-01-21] MEDS: lamoTRIgine 25 MG TAB PO SCH (08:29)
[2023-01-21] MEDS: VENLAFAXINE HCL XR 150 MG CAPXR PO SCH (08:30)
[2023-01-21] MEDS: DOCUSATE SODIUM 100 MG CAP PO SCH ×2 (10:19→20:47)
--- NOTE | 2023-01-21 13:45 | Surgery Progress Note ---
Date of Service January 21, 2023 Assessment & Plan (1) Cellulitis: (2) Surgical site reaction: Plan: Leukocytosis resolved on labs today. Cellulitis is resolving but still present. The patient has been afebrile. Mild tachycardia last night that has resolved. Pt states she had severe nausea this am that is also resolved. Will continue IV antibiotics for now. She may continue her diet. Nausea presently seems resolved. Keep the surgical area as dry as possible and the wound lightly packed. Packing inserted today, to be changed daily. Will follow up in the am. Admission and Anticipated Discharge Date Admission Date: January 20, 2023 Subjective Patient was seen and examined this morning. She says she does not feel well and had some nausea this am that was difficult to control with medications. She has soreness that is now progressing up her back and continues to note small amounts of drainage from the surgical site. Physical Exam Constitutional: healthy appearing; no acute distress, not ill appearing and not diaphoretic Respiratory: normal respiratory effort; no respiratory distress, no labored breathing and does not use accessory muscles Skin: There is sero-sanguinous drainage noted on the ABD pad that was over the surgical site. The area was inspected this am and appears less moist and the bright red erythema around the incision is less bright red this am. There is now evidence for uncoapted skin edges at both the most superior aspect of the wound around the top suture and at the inferior aspect of the wound at the suture just above the last suture. At these two locations, the suture has pulled away from the opposite skin edge and is between the two edges causing moist inflammation/irritation at the skin edges at these locations with some exudate. There was active sero-sanguinous drainage noted from the superior aspect. For these reasons, these two sutures were removed at the bedside and the wound was lightly packed to the base of the wound with a thin cut strip of gauze to wick each area. The patient tolerated this without issues. Gauze was used to keep the surrounding skin from rubbing together to continue to help avery irritation and moisture. Neurologic: moves all extremities and awake; no focal motor deficits and not obtunded Results & Data Vital Signs (Past 12 Hours) Vital Signs Temp Pulse Resp BP Pulse Ox O2 Del Method 01/21/23 07:15 36.7 C 81 16 99/55 L 97 Room Air PG Care Time/CCT Total # of Minutes Spent Total Time Spent with Patient: Total time spent is greater than 50% in coordination of care (as documented) at patient's floor/unit and/or counseling patient: Coding Level of Care Code 44834 SUB INP/OBS CARE 06/15MIN Diagnoses Cellulitis L03.90 Surgical site reaction T81.9XXA
[2023-01-22] MEDS: ONDANSETRON INJ 2 MG/ML 2 ML VIAL IV PRN (00:31)
[2023-01-22] MEDS: oxyCODONE HCL IR 5 MG TAB (IMMEDIATE RELEASE) PO PRN ×4 (00:31→19:41)
[2023-01-22] MEDS: AMPICILLIN/SULBACTAM SOD 3,000 MG in 0.9 % SODIUM CHLORIDE 100 ML IV SCH ×4 (05:30→22:24)
--- NOTE | 2023-01-22 05:37 | Surgery Progress Note ---
Date of Service January 22, 2023 Assessment & Plan (1) Cellulitis: (2) Surgical site reaction: Plan: Patient is status post pilonidal cyst surgery by Dr. Lara of [facility] general surgery Continue dressing and local wound care Drainage from surgical site has grown staph species. She is receiving antibiotics in the form of Unasyn which should continue pending further culture data Continue antiemetics as needed. Her abdominal exam is essentially benign raising the question of antibiotics are causing some of her nausea. Increase activity as able Admission and Anticipated Discharge Date Admission Date: January 20, 2023 Supervising Physician Co-Signing Physician Notes I have seen and examined this patient this am. She says she had nausea again o/n. She also states that she still feels pressure up her back and is concerned as to whether or not this is spreading to her lower back. She has been afebrile o/n and without leukocytosis. I examined the area. She does have some fullness of the tissues here but without evidence for fluid collection. No erythema. The superior aspect of the wound where we began packing it was probed and does not track superiorly. The wound was repacked with packing at the top opening which is still draining serous fluid. This was extended down to the lower aspect of the wound and the tail end was lightly packed into the inferior opening. The area was covered with dry, sterile gauze and covered with an ABD. Change packing daily. Recommend using 1/4 inch packing. The patient is not comfortable going home today and not sure about wound care. We will f/u in the am. Subjective Patient currently resting in bed. She notes that she did have some nausea and vomiting last night but denies abdominal pain. She notes that she continues to have pain in her sacral area at surgical site but this has also improved. She denies any fevers, shakes, or chills. Physical Exam Physical Exam: Wound will be examined by attending physician on rounds this morning and therefore dressing was not taken down. Gastrointestinal (Abdomen): Abdomen was soft and nondistended. It is nonrigid. There is no pain with palpation. Results & Data Vital Signs (Past 12 Hours) Vital Signs Temp Pulse Resp BP Pulse Ox O2 Del Method 01/21/23 22:23 36.8 C 85 17 113/72 98 Room Air PG Care Time/CCT Total # of Minutes Spent Total Time Spent with Patient: Total time spent is greater than 50% in coordination of care (as documented) at patient's floor/unit and/or counseling patient: Coding Level of Care Code None Diagnoses Cellulitis L03.90 Surgical site reaction T81.9XXA
[2023-01-22] MEDS: DOCUSATE SODIUM 100 MG CAP PO SCH ×2 (08:16→20:11)
[2023-01-22] MEDS: VENLAFAXINE HCL XR 150 MG CAPXR PO SCH (08:17)
[2023-01-22] MEDS: lamoTRIgine 25 MG TAB PO SCH (08:17)
[2023-01-22] MEDS: MULTIVITAMIN TAB PO SCH (08:18)
[2023-01-23] MEDS: oxyCODONE HCL IR 5 MG TAB (IMMEDIATE RELEASE) PO PRN (02:46)
[2023-01-23] MEDS: AMPICILLIN/SULBACTAM SOD 3,000 MG in 0.9 % SODIUM CHLORIDE 100 ML IV SCH ×2 (04:54→11:11)
[2023-01-23] MEDS: ACETAMINOPHEN 325 MG TAB PO PRN (07:36)
[2023-01-23] MEDS: DOCUSATE SODIUM 100 MG CAP PO SCH (09:08)
[2023-01-23] MEDS: VENLAFAXINE HCL XR 150 MG CAPXR PO SCH (09:08)
[2023-01-23] MEDS: MULTIVITAMIN TAB PO SCH (09:08)
[2023-01-23] MEDS: lamoTRIgine 25 MG TAB PO SCH (09:08)
[2023-01-23] MEDS ORDERED: POLYETHYLENE (MIRALAX) 17 GM PACK PO SCH (12:45)
--- NOTE | 2023-01-23 14:11 | Surgery Progress Note ---
I have seen and examined this patient. I agree with the plan Date of Service January 23, 2023 Assessment & Plan (1) History of surgical removal of pilonidal cyst: Plan: Pt here with pain and fluid collection s/p removal of pilonidal cyst yesterday WBC normal. vitals are stable reports improving pain will require daily dressing changes and packing with nu-gauze pauline, covered with gauze and medipore tape wound cx's returned + staph, sensitive to bactrim, will send home on 5 day course of this daily miralax added to her colace regimen to help with bowel movement. to continue this until BM and then okay to taper off recommend following up with dr. wan as previously scheduled next monday (or sooner if new issue arises) may discharge to home today (2) Surgical site reaction: Admission and Anticipated Discharge Date Admission Date: January 20, 2023 Subjective Patient reports pain is getting better. Packing fell out but was replaced. She reports ongoing drainage. Concerned about having a bowel movement. Physical Exam Physical Exam: awake/alert, no distress Gastrointestinal (Abdomen): will allow RN to change dressing today- did not evaluate Results & Data Vital Signs (Past 12 Hours) Vital Signs Temp Pulse Resp BP Pulse Ox O2 Del Method 01/23/23 07:07 36.7 C 68 16 95/64 L 99 Room Air PG Care Time/CCT Total # of Minutes Spent Total Time Spent with Patient: Total time spent is greater than 50% in coordination of care (as documented) at patient's floor/unit and/or counseling patient: Coding Level of Care Code 72450 SUB INP/OBS CARE 25MIN Diagnoses History of surgical removal of pilonidal cyst Z98.890 Surgical site reaction T81.9XXA
--- NOTE | 2023-01-24 15:15 | Discharge Summary ---
Date of Service January 24, 2023 Admission HPI Per Admitting Provider This is a 27yF with a PMH of depression who presents to the [facility] ED on 01/20/23 with complaints of pain, warmth, and drainage from her recent pilonidal cystectomy incision. The patient had surgery on 12/30/22 at [facility] with Dr. Saleh. She was doing well initially following procedure. She had follow up in the office on 01/16 and half of her sutures were removed, she noted no issues at post op visit. Then on Monday patient developed increasing redness and warmth in the area. This has become worse and was associated with some drainage as well. She developed a fever yesterday of 101F and decided to call the office. She was instructed to be further evaluated in the ER. In the ER she underwent a CT a/p that revealed a 3.3 x 2.1 x 1.6 cm fluid collection concerning for abscess in addition with cellulitis. Patient states it drained a moderate amount en-route to the CT scanner which appeared purulent mixed with some blood, now it has lessened. She reports some nausea and chills. No CP/SOB, trouble with BMs, abdominal pain. Principal Diagnosis history of surgical removal of pilonidal cyst surgical site reaction Discharge Exam awake/alert, no distress Skin pilonidal area covered with dressing Discharge Data Allergies Allergy/AdvReac Type Severity Reaction Status Date / Time sumatriptan [From Imitrex] Allergy Severe felt like Verified 12/14/22 16:03 throat was swelling Consultations 01/20/23 12:43 ED Decision to Admit Stat Ordered Studies 01/20/23 08:47 CT Abd and Pelvis [CT abd pelvis IV con only] Stat Hospital Course (1) History of surgical removal of pilonidal cyst: This is a 27yF with a PMH of depression who presents to the [facility] ED on 01/20/23 with complaints of pain, warmth, and drainage from her recent pilonidal cystectomy incision. The patient had surgery on 12/30/22 at [facility] with Dr. Saleh. She was doing well initially following procedure. She had follow up in the office on 01/16 and half of her sutures were removed, she noted no issues at post op visit. Then on Monday patient developed increasing redness and warmth in the area. This has become worse and was associated with some drainage as well. She developed a fever yesterday of 101F and decided to call the office. She was instructed to be further evaluated in the ER. In the ER she underwent a CT a/p that revealed a 3.3 x 2.1 x 1.6 cm fluid collection concerning for abscess in addition with cellulitis. Patient states it drained a moderate amount en-route to the CT scanner which appeared purulent mixed with some blood, now it has lessened. WBC 12. She was admitted under the surgical service for further management. On exam the buttock cleft evaluated in area of recent pilonidal surgery, + erythema and tenderness along incision, there is no extensive drainage, some moisture damage to surrounding skin noted inferiorly, no obvious area of apparent abscess. Well approximated. We placed some dry gauze in the area. Patient started on IV abx. Wound culture was able to be sent. On 01/21 WBC 5.9. She had some intermittent nausea. Otherwise continued on a diet as tolerated and IV abx. There was an area in the wound that appeared amenable to suture removal and packing. 01/22 packing and dressing changes continued. Cultures growing staph awaiting sensitivities. Wound continues to look improved. On 01/23 the patient was deemed stable for discharge to home. Abx transitioned to po bactrim to complete a course. Packing and dressing changes to be continued daily. She was instructed to follow up with Dr. Saleh as previously scheduled. (2) Surgical site reaction: Total Time Total Time Spent Total Time Spent (In Minutes): 15 Discharge Plan Discharge Items Patient Disposition: Home - Self-Care Reason For Visit: PILIONIDAL CYST INFECTION Discharge Diagnosis: pilonidal cyst infection Activity: Per Instructions section Lifting: No more than 25 pounds Bathing Comment: may shower Exercise/Sports: Wait until after follow-up appointment Driving/Machine Use: no driving if taking any narcotics for pain Non-emergency contact: Surgeon Call non-emergency contact if: you have any medication questions, your symptoms worsen, your pain is not controlled, your pain is unusual for you, you have a fever, your temperature is above 101.5, your wound has increased redness, your wound has increased drainage and your wound pain has increased Follow-up/Referrals: Parmjit Saleh MD [Physician] - (Please follow up in clinic with Dr. Saleh as previously scheduled ) Nadeem Dunaway DO [Physician] - Girma Navarrete MD [Primary Care Provider] - Diet: Regular Addtl Attending Provider Instructions: Please pack wound daily (two areas) with 1/4" plain nu-gauze packing, cover with dry gauze and adhere with medipore tape Complete the full course of antibiotic prescribed to you You may continue to take Miralax and Colace daily until you have a bowel movement Pending Studies at Discharge: No Stand-Alone Forms: My [facility] [employer], Work/School Release, Smoking Cessation Medications and DC Order Prescriptions: New sulfamethoxazole-trimethoprim [Bactrim DS] 800-160 mg tablet 1 tab PO BID 5 Days Qty: 10 0RF Continued venlafaxine [Effexor XR] 150 mg capsule,extended release 24hr 150 mg PO QAM multivitamin Tablet 1 tab PO QAM lorazepam 0.5 mg tablet 0.5 mg PO DAILY PRN (Reason: Anxiety) hydroxyzine HCl 25 mg tablet 25 mg PO Q6H PRN (Reason: Anxiety) lamotrigine 100 mg tablet 50 mg PO QAM Discharge Orders: Discharge Order (Routine); Ordered 01/23/23 Ordered By: Tahsia Cole/Jacek Patient Handouts: Pilonidal Cyst Admission Data Admit Date/Time: 01/20/23 12:39 Attending Provider: Nadeem Dunaway Admit Provider: Nadeem Dunaway Primary Care Provider: Girma Navarrete Other Providers: Tashia Benito Other Interventions: Discharge Summary Assessment (RN) Last Done: 01/23/23 14:08 Coding Level of Care Code 17563 IN/OBS DISCH 30 MIN/LESS Diagnoses History of surgical removal of pilonidal cyst Z98.890 Surgical site reaction T81.9XXA
== END 2023-01-23 14:33 | disposition home or self-care (01) ==
LOC: EDINP 08:25 → ED 08:25 → 3E 16:03